=== PATIENT | male | born 1945 | race Caucasian/White ===

== ENCOUNTER 2016-08-07 14:03 | Inpatient (IN) | payer OTHER ==
[~2016-08-07] VITALS: Ht 180.3 cm; Wt 95.2 kg
[~2016-08-07 14:03] MED LIST: ADVIN10050 INH; ALBINS/ INH; BUSP-8 PO; CITA40TA12 PO; CMD75 PO; DILT240C56 PO; FLUD0.1T10 PO; FRS/40 PO; IPRA0.03 NAE; IPRA1AER2 INH; LORA-741 PO; MULT-506 PO; OXGN; POTA-74 PO; PRED1SUS3 OPR; PRED20TA PO; RANI300T2 PO; VNTHFA/IN INH
--- NOTE | 2016-08-07 15:24 | EMERGENCY ROOM VISIT NOTE ---
History Report prepared by Jamshid: Sheldon Stout Under the Supervision of: Dr. Agnieszka Bermudez D.O. First contact with patient: 14:46 Chief Complaint: RESPIRATORY PROBLEMS Stated Complaint: SOB,NO ENERGY Nursing Triage Summary: pt to the ED with c/o SOB and cough pt has dry skin LE with ulceration to left inner ankle and the right is weeping History of Present Illness The patient is a 71 year old male who presents to the Emergency Room with complaints of persistent weakness that began prior to arrival. Per the patient' s friend, the patient is currently in the process of getting and moving. He notes that on Sunday the patient was moving things in his house and sorting things, and notes that the patient became increasingly short of breath. The patient's friend notes that the patient has a history of COPD and was instructed to come to the emergency department for further evaluation by his PCP. He notes that the patient appears pale and increasingly weak today. He also described that the patient was slightly confused. The patient's friend notes that the patient has ulcerations to his bilateral feet. The patient denies any abdominal pain or chest pain. The patient states that he has had vein stripping in his legs. He notes a history of atrial fibrillation and states that he takes Coumadin. The patient reports normal fluid intake, but states that he has been eating less. The patient denies any history of diabetes , and states that he is a previous smoker. Source of History: patient, friend Onset: prior to arrival Position: other (global) Quality: other (weakness) Timing: other (persistent) Associated Symptoms: + SOB, No abdominal pain, No chest pain Note: Associated Symtpoms: eating less, bilateral ulcerations to feet, appears pale Review of Systems See HPI for pertinent positives & negatives. A total of 10 systems reviewed and were otherwise negative. Past Medical & Surgical Medical Problems: (1) Afib (2) BPH (benign prostatic hyperplasia) (3) Cellulitis (4) CHF (congestive heart failure) (5) CKD (chronic kidney disease), stage III (6) COPD (chronic obstructive pulmonary disease) (7) Depression (8) GERD (gastroesophageal reflux disease) (9) Leukocytosis (10) Orthostatic hypotension (11) Renal cancer (12) SOB (shortness of breath) Surgical Problems: (1) H/O vein stripping (2) History of nephrectomy (3) Hx of cholecystectomy (4) S/P total hip arthroplasty Family History No pertinent family history stated. Social History Smoking Status: Former Smoker Marital Status: in relationship Occupation Status: retired Current/Historical Medications Scheduled Buspirone Hcl (Buspirone Hcl), 10 MG PO BID Citalopram Hydrobromide (Celexa), 1.5 TABS PO DAILY Diltiazem Hcl Coated Beads (Diltiazem Cd), 1 TAB PO QAM Fludrocortisone Acetate (Florinef), 0.1 MG PO QAM Fluticasone Furoate-Vilanterol (Breo Ellipta), 1 PUFF PO DAILY Furosemide (Lasix), 20 MG PO QAM Multivitamin (Multivitamin), 1 TAB PO DAILY Oxygen (Oxygen), 2 LITERS NA HS Potassium Chloride (Potassium Chloride Er), 1 TAB PO QPM Ranitidine (Zantac), 300 MG PO HS Warfarin Sod (Coumadin), 7.5 MG PO QPM Scheduled PRN Albuterol Hfa (Ventolin Hfa), 2 PUFFS INH Q6H PRN for SOB/Wheezing Albuterol Sulf (Proventil 0.083% 2.5MG/3ML), 2.5 MG INH QID PRN for SOB/Wheezing Ipratropium [place] (Nasal) (Ipratropium [place]), 2 SPRAY MAKENNA QID PRN for ALLERGIES Ipratropium-Albuterol (Combivent Respimat), 1 PUFFS INH QID PRN for SOB/Wheezing Prednisone (Prednisone), 20 MG PO UD PRN for COLD SYMPTOMS Allergies Coded Allergies: No Known Allergies (Unverified , 08/07/16) Physical Exam Vital Signs Date Time Temp Pulse Resp B/P Pulse Ox O2 Delivery O2 Flow Rate FiO2 08/07/16 19:03 84 08/07/16 18:59 87 22 119/79 91 Room Air 08/07/16 18:11 82 20 105/72 92 Room Air 08/07/16 16:13 80 20 105/73 93 Room Air 08/07/16 14:36 86 08/07/16 14:24 92 08/07/16 14:23 36.7 88 20 98/60 92 Room Air Physical Exam HEENT: Head - normocephalic and atraumatic Pupils are equal, round, and reactive to light. Extraocular eye muscles are intact, and sclera are anicteric. Nose - moist nasal mucosa without discharge. Mouth - moist buccal mucosa. Oropharynx is nonerythematous and there is no tonsillar exudate or edema noted. Neck: Supple; no JVD, nuchal rigidity, cervical lymphadenopathy. Heart: Irregularly irregular heart rate. There is a normal S1 and S2 with no murmurs, clicks, or gallops appreciated. Lungs: Diminished breath sounds in all lung [place], expiratory wheezes at bases. With no rales, or rhonchi. Abdomen: Protuberant. Soft, completely nontender, nondistended, with good bowel sounds. There are no palpable pulsatile masses or hepatosplenomegaly. There is no guarding, rigidity, or rebound noted. Extremities: Ulcerations to medial aspect of both ankles, left ulcer appears much deeper than right ulcer. No evidence of cyanosis, clubbing, or edema. There are easily palpable peripheral pulses. Skin: Extremely dry and scaly legs, warm to touch, no palpable pedal pulses. Medical Decision & Procedures ER Provider Diagnostic Interpretation: X-ray results as stated below per interpretation by me and the radiologist: CHEST 2 VIEWS ROUTINE CLINICAL HISTORY: Shortness of breath COMPARISON STUDY: No previous studies for comparison. FINDINGS: The heart is enlarged. There is elevation left hemidiaphragm. There is a suspected hiatal hernia. There is no failure. There is no lobar consolidation. There are no pleural effusions.[ IMPRESSION: Suspected large hiatal hernia. No acute findings. Electronically signed by: Marc Reynolds M.D. 08/07/2016 3:57 PM Dictated Date/Time: 08/07/2016 3:57 PM LEFT ANKLE MIN 3 VIEWS ROUTINE CLINICAL HISTORY: Left ankle ulcer. Evaluate for ostium myelitis. COMPARISON: None FINDINGS: Alignment of left ankle is anatomic. There is no fracture or radiopaque foreign body. There is no radiographic evidence of osteomyelitis. There is soft tissue swelling of the medial left ankle. IMPRESSION: No acute fracture or radiographic evidence of osteomyelitis. Electronically signed by: Giuliano Laws M.D. 08/07/2016 3:58 PM Dictated Date/Time: 08/07/2016 3:56 PM Laboratory Results Test 08/07/16 15:24 08/07/16 18:22 08/07/16 18:37 08/07/16 18:56 D-Dimer 320 ug/L FEU (0-500) Magnesium Level 2.2 mg/dl (1.8-2.4) Total Bilirubin 0.5 mg/dl (0.2-1) Direct Bilirubin 0.2 mg/dl (0-0.2) Aspartate Amino Transf (AST/SGOT) 20 U/L (15-37) Alanine Aminotransferase (ALT/SGPT) 28 U/L (12-78) Alkaline Phosphatase 81 U/L (45-117) Total Creatine Kinase 148 U/L (39-308) Creatine Kinase MB 1.7 ng/ml (0.5-3.6) Creatine Kinase MB Ratio 1.1 (0-3.0) Troponin I < 0.015 ng/ml (0-0.045) Pro-B-Type Natriuretic Peptide 3744 pg/ml (0-900) Total Protein 6.8 gm/dl (6.4-8.2) Albumin 2.9 gm/dl (3.4-5.0) Thyroid Stimulating Hormone (TSH) 0.534 uIu/ml (0.300-4.500) Bedside Lactic Acid Venous 1.03 mmol/L (0.90-1.70) Activated Partial Thromboplast Time 47.8 SECONDS (21.0-31.0) Partial Thromboplastin Ratio 1.8 Urine Color DK YELLOW Urine Appearance CLEAR (CLEAR) Urine pH 5.5 (4.5-7.5) Urine Specific [place] 1.019 (1.000-1.030) Urine Protein NEG (NEG) Urine Glucose (UA) NEG (NEG) Urine Ketones TRACE (NEG) Urine Occult Blood NEG (NEG) Urine Nitrite NEG (NEG) Urine Bilirubin NEG (NEG) Urine Urobilinogen NEG (NEG) Urine Leukocyte Esterase NEG (NEG) Laboratory results per my review. Medications Administered Medications (Trade) Dose Ordered Sig/Moises Route Start Time Stop Time Status Last Admin Dose Admin Sodium Chloride 1,000 ml @ 250 mls/hr Q4H STAT IV 08/07/16 18:38 08/07/16 21:18 DC 08/07/16 18:58 250 MLS/HR Sodium Chloride 500 ml @ 999 mls/hr Q31M STAT IV 08/07/16 18:38 08/07/16 19:08 DC 08/07/16 18:38 999 MLS/HR Daptomycin 600 mg/ Sodium Chloride 62 ml @ 100 mls/hr NOW STAT IV 08/07/16 18:49 08/07/16 19:26 DC 08/07/16 20:24 100 MLS/HR Imipenem/ Cilastatin Sodium/ Dextrose (Primaxin Iv/D5 100ml) 110 ml @ 100 mls/hr NOW STAT IV 08/07/16 18:49 08/07/16 19:54 DC 08/07/16 19:18 100 MLS/HR Procedure The patient was treated with Sodium Chloride 500 ml @ 999 mls/hr IV, Sodium Chloride 1000 ml @ 250 mls/hr IV, Imipenem/Cilastatin Sodium 500 mg/Dextrose 110 ml @ 100 mls/hr IV, Daptomycin 600 mg/Sodium Chloride 62 ml @ 100 mls/hr IV. ECG Indication: SOB/dyspnea Rate (beats per minute): 83 Rhythm: atrial fibrillation Findings: RBBB, no acute ischemic change, no ectopy Comparison ECG Date: no prior available ED Course 1502: Past medical records reviewed. The patient was evaluated in room C2B. A complete history and physical exam was performed. A twelve-lead EKG was obtained. A chest x-ray was obtained. 1746: Because of the significant leukocytosis, I reevaluated the patient and going to have additional labs. The patient appears to be dehydrated on physical exam. 1838: Sodium Chloride 500 ml @ 999 mls/hr IV, Sodium Chloride 1000 ml @ 250 mls/ hr IV. 1844: I reevaluated the patient and he is resting comfortably. I discussed the exam findings with him and his friends. His friends state that the patient has been increasingly confused. I discussed the treatment plan. They all verbalized complete understanding and agreement. The patient will be evaluated for further treatment. 1849: Imipenem/Cilastatin Sodium 500 mg/Dextrose 110 ml @ 100 mls/hr IV, Daptomycin 600 mg/Sodium Chloride 62 ml @ 100 mls/hr IV. 1903: I discussed the patients case with Frieda Berumen PA-C. She is going to evaluate the patient for further treatment. Medical Decision The patient is a 71 year old male who presents to the ED with shortness of breath. Differential diagnosis includes non-healing ulcers on feet, COPD exacerbation, PE, diabetes, pneumonia, bronchitis, bacteremia, CHF, osteomyelitis. Lab interpretation: hemoglobin 20.2, hematocrit 37.9, hemoglobin 12.9, lactic acid 1.0, glucose 128, BUN 27, creatinine 1.5, albumin 2.9, normal TSH and LFTs , BNP of 3744, d-dimer 320, INR 1.6, urine dip is negative for infection this is a 71-year-old male patient who has had increasing shortness of breath and weakness over the past couple of days. The friends who accompany him also describes some increased confusion thought to be secondary to his generalized weakness. The friends had never seen the ulcerations on the patient's ankles and says they were quite concerned about what they saw. Chest x-ray was unremarkable. X-rays of the ankles revealed no evidence of osteomyelitis. The patient has normal vital signs. The patient had a subtherapeutic INR and I was somewhat concerned about PE. However, D-dimer was only 320 and therefore I do not suspect PE. The patient's presentation could represent COPD exacerbation. However, the patient has significant leukocytosis and a bit of an altered mental status. I am concerned about the wounds on his ankles. They could possibly be a source of bacteremia. We will start the patient on Primaxin and daptomycin and I have discussed the case with the [facility] Hospitalist. The patient has a bit of an elevated creatinine. We do not have a baseline creatinine to compare to. Consults Time Called: 1843 Consulting Physician: Frieda Berumen PA-C Returned Call: [phone] I discussed the patients case with Frieda Berumen PA-C. She is going to evaluate the patient for further treatment. Impression Primary Impression: Non-healing ulcer of ankle Additional Impressions: Altered mental status Renal insufficiency Scribe Attestation The scribe's documentation has been prepared under my direction and personally reviewed by me in its entirety. I confirm that the note above accurately reflects all work, treatment, procedures, and medical decision making performed by me. Departure Information Dispostion Being Evaluated By Hospitalist Referrals Jamarcus Shrestha M.D. (PCP) Problem Qualifiers
[2016-08-07 15:33] LABS: BASO ABS # 0.01 K/uL (0-0.2); COMPLETE YES; EOS % 0.3 %; HEMATOCRIT 37.9 % (42-52); IG% 0.4 %; LYMPH % 5.8 %; LYMPH ABS # 1.17 K/uL (1.2-3.4); MEAN CELL VOLUME 86.3 fL (80-100); MEAN CORPUSCULAR HEMOGLOBIN 29.4 pg (25-34); MEAN PLATELET VOLUME 8.9 fL (7.4-10.4); MONO % 6.1 %; NEUT % 87.4 %; PLATELET COUNT 149 K/uL (130-400); RED BLOOD COUNT 4.39 M/uL (4.7-6.1); WHITE BLOOD COUNT 20.27 K/uL (4.8-10.8)
[2016-08-07 15:49] LABS: INR 1.6 (0.9-1.1); PARTIAL THROMBOPLASTIN RATIO 1.6; PROTHROMBIN TIME (PATIENT) 17.5 SECONDS (9.0-12.0)
[2016-08-07 15:51] LABS: ALT/SGPT 28 U/L (12-78); AST/SGOT 20 U/L (15-37); BLOOD UREA NITROGEN 27 mg/dl (7-18); BUN/CREATININE RATIO 17.7 (10-20); CARBON DIOXIDE 28 mmol/L (21-32); CHLORIDE 103 mmol/L (98-107); GLUCOSE 128 mg/dl (70-99); MAGNESIUM 2.2 mg/dl (1.8-2.4); POTASSIUM 4.2 mmol/L (3.5-5.1); SODIUM 137 mmol/L (136-145)
--- NOTE | 2016-08-07 15:58 | DIAGNOSTIC IMAGING REPORT ---
LEFT ANKLE MIN 3 VIEWS ROUTINE CLINICAL HISTORY: Left ankle ulcer. Evaluate for ostium myelitis. COMPARISON: None FINDINGS: Alignment of left ankle is anatomic. There is no fracture or radiopaque foreign body. There is no radiographic evidence of osteomyelitis. There is soft tissue swelling of the medial left ankle. IMPRESSION: No acute fracture or radiographic evidence of osteomyelitis. Electronically signed by: Giuliano Laws M.D. 08/07/2016 3:58 PM Dictated Date/Time: 08/07/2016 3:56 PM
--- NOTE | 2016-08-07 15:58 | DIAGNOSTIC IMAGING REPORT ---
CHEST 2 VIEWS ROUTINE CLINICAL HISTORY: Shortness of breath COMPARISON STUDY: No previous studies for comparison. FINDINGS: The heart is enlarged. There is elevation left hemidiaphragm. There is a suspected hiatal hernia. There is no failure. There is no lobar consolidation. There are no pleural effusions.[ IMPRESSION: Suspected large hiatal hernia. No acute findings. Electronically signed by: Marc Reynolds M.D. 08/07/2016 3:57 PM Dictated Date/Time: 08/07/2016 3:57 PM
[2016-08-07 16:02] LABS: ALKALINE PHOSPHATASE 81 U/L (45-117); CKMB/CK RATIO 1.1 (0-3.0); THYROID STIMULATING HORMONE 0.534 uIu/ml (0.300-4.500)
[2016-08-07] MEDS ORDERED: FLUT1INH PO (16:57)
[2016-08-07] MEDS ORDERED: SODIUM CHLORIDE 0.9% 1000ML 1,000 ML IV STA (18:38)
[2016-08-07] MEDS ORDERED: SODIUM CHLORIDE 0.9% 500ML 500 ML IV STA (18:38)
[2016-08-07] MEDS ORDERED: IMIPENEM/CILASTATIN IV 500 MG in DEXTROSE 5% 100ML 100 ML IV STA (18:49)
[2016-08-07] MEDS ORDERED: DAPTOmycin IV 600 MG in SODIUM CHLORIDE 0.9% 50ML 50 ML IV STA (18:49)
[2016-08-07 19:13] LABS: URINE APPEARANCE CLEAR (CLEAR); URINE BILIRUBIN NEG (NEG); URINE COLOR DK YELLOW; URINE NITRITE NEG (NEG); URINE PH 5.5 (4.5-7.5); URINE SPECIFIC GRAVITY 1.019 (1.000-1.030); UROBILINOGEN NEG (NEG)
[2016-08-07 19:14] LABS: MANUAL MICROSCOPIC REQUIRED? NO; REVIEW REQ? NO
[2016-08-07 19:15] LABS: INR 1.6 (0.9-1.1); PARTIAL THROMBOPLASTIN RATIO 1.8; PROTHROMBIN TIME (PATIENT) 17.7 SECONDS (9.0-12.0)
[2016-08-07] MEDS ORDERED: ONDANSETRON INJ 2 MG/ML 2 ML VIAL IV PRN (19:45)
[2016-08-07] MEDS ORDERED: ACETAMINOPHEN 325 MG TAB PO PRN (19:45)
--- NOTE | 2016-08-07 20:20 | History and Physical ---
History & Physical Date & Time of Service: August 07, 2016 at 19:51 Chief Complaint: Sob,No Energy Primary Care Physician: Jamarcus Shrestha M.D. History of Present Illness Source: patient, clinic records, hospital records Patient seen and examined. 71 year old male with PMHX of COPD with nocturnal hypoxia, Afib on coumadin, Diastolic CHF, Depression, HLD, CKD stage 3, orthostatic hypotension and h/o renal CA presents to the ED complaining of SOB x 3 days. Patient reports he started to feel SOB when he was moving furniture in his home over the weekend. Since then feels more SOB. He reports associated increased cough with white sputum production. He states he took his rescue pack of prednisone and augmentin and finished that today. He states he feels "fuzzy" and has no energy so a friend brought him to the ED for further evaluation. He denies fevers, chills, chest pain, palpitations, nausea, vomiting, diarrhea, dysuria, calf pain and edema. Patient also has BL medial malleolus ulcers. He states he has had them for many months but that they are getting worse. In the ED VS are stable, WBC count is 20K, CXR is negative, d dimer is negative, he is not hypoxic. He received IVFs, Daptomycin and imipenem for possible cellulitis. He will be admitted for further workup and treatment. Past Medical/Surgical History Medical Problems: (1) Afib Status: Chronic (2) BPH (benign prostatic hyperplasia) Status: Chronic (3) CHF (congestive heart failure) Status: Chronic (4) CKD (chronic kidney disease), stage III Status: Chronic (5) COPD (chronic obstructive pulmonary disease) Status: Chronic (6) Depression Status: Chronic (7) GERD (gastroesophageal reflux disease) Status: Chronic (8) Orthostatic hypotension Status: Chronic (9) Renal cancer Status: Chronic Surgical Problems: (1) H/O vein stripping Status: Chronic (2) History of nephrectomy Status: Chronic (3) Hx of cholecystectomy Status: Chronic (4) S/P total hip arthroplasty Status: Chronic Family History FH: heart disease Social History Smoking Status: Former Smoker (150 pack year history ) Alcohol Use: none Marital Status: in relationship Occupational Status: retired Allergies Coded Allergies: No Known Allergies (Unverified , 08/07/16) Home Medications Scheduled Buspirone Hcl (Buspirone Hcl), 10 MG PO BID Citalopram Hydrobromide (Celexa), 1.5 TABS PO DAILY Diltiazem Hcl Coated Beads (Diltiazem Cd), 1 TAB PO QAM Fludrocortisone Acetate (Florinef), 0.1 MG PO QAM Fluticasone Furoate-Vilanterol (Breo Ellipta), 1 PUFF PO DAILY Furosemide (Lasix), 20 MG PO QAM Multivitamin (Multivitamin), 1 TAB PO DAILY Oxygen (Oxygen), 2 LITERS NA HS Potassium Chloride (Potassium Chloride Er), 1 TAB PO QPM Ranitidine (Zantac), 300 MG PO HS Warfarin Sod (Coumadin), 7.5 MG PO QPM Scheduled PRN Albuterol Hfa (Ventolin Hfa), 2 PUFFS INH Q6H PRN for SOB/Wheezing Albuterol Sulf (Proventil 0.083% 2.5MG/3ML), 2.5 MG INH QID PRN for SOB/Wheezing Ipratropium [place] (Nasal) (Ipratropium [place]), 2 SPRAY MAKENNA QID PRN for ALLERGIES Ipratropium-Albuterol (Combivent Respimat), 1 PUFFS INH QID PRN for SOB/Wheezing Prednisone (Prednisone), 20 MG PO UD PRN for COLD SYMPTOMS Review of Systems Constitutional: No chills, No fever Eyes: No worsening of vision ENT: No nasal symptoms Respiratory: + cough, + shortness of breath, + sputum Cardiovascular: No chest pain, No edema, No palpitations Abdomen: No constipation, No diarrhea, No nausea, No pain, No vomiting Musculoskeletal: No calf pain, No swelling Genitourinary - Male: No dysuria Neurologic: No numbness/tingling, No vertigo Psychiatric: No depression symptoms Endocrine: No fatigue Hematologic / Lymphatic: No abnormal bleeding/bruising, No clotting problems Integumentary: No itch, No rash Allergic / Immunologic: No environmental allergies Physical Exam Vital Signs Date Time Temp Pulse Resp B/P Pulse Ox O2 Delivery O2 Flow Rate FiO2 08/07/16 19:03 84 08/07/16 18:59 87 22 119/79 91 Room Air 08/07/16 18:11 82 20 105/72 92 Room Air 08/07/16 16:13 80 20 105/73 93 Room Air 08/07/16 14:36 86 08/07/16 14:24 92 08/07/16 14:23 36.7 88 20 98/60 92 Room Air General Appearance: + pertinent finding (Pleasant WD/WN 71 year old male lying in bed in NAD ) Head: normocephalic, atraumatic Eyes: PERRL, EOMI, sclerae normal ENT: hearing grossly normal, pharynx normal Neck: supple, no JVD Respiratory/Chest: chest non-tender, lungs clear (diminished), normal breath sounds, no respiratory distress, no accessory muscle use Cardiovascular: regular rate, rhythm, no edema, no gallop, no JVD, no murmur, normal peripheral pulses Abdomen/GI: normal bowel sounds, non tender, soft Back: normal inspection, no muscle spasm Extremities/Musculoskelatal: no calf tenderness, normal capillary refill, no pedal edema, + pertinent finding (BL medial malleolar ulcers, with scant drainage, mild surrounding erythema ) Neurologic/Psych: no motor/sensory deficits, alert, oriented x 3 Skin: + pertinent finding (stasis dermatitis ) Lymphatic: no adenopathy Diagnostics Laboratory Results Results Past 24 Hours Test 08/07/16 15:24 08/07/16 18:22 08/07/16 18:37 08/07/16 18:56 Range/Units White Blood Count 20.27 4.8-10.8 K/uL Red Blood Count 4.39 4.7-6.1 M/uL Hemoglobin 12.9 14.0-18.0 g/dL Hematocrit 37.9 42-52 % Mean Corpuscular Volume 86.3 80-100 fL Mean Corpuscular Hemoglobin 29.4 25-34 pg Mean Corpuscular Hemoglobin Concent 34.0 32-36 g/dl Platelet Count 149 130-400 K/uL Mean Platelet Volume 8.9 7.4-10.4 fL Neutrophils (%) (Auto) 87.4 % Lymphocytes (%) (Auto) 5.8 % Monocytes (%) (Auto) 6.1 % Eosinophils (%) (Auto) 0.3 % Basophils (%) (Auto) 0.0 % Neutrophils # (Auto) 17.72 1.4-6.5 K/uL Lymphocytes # (Auto) 1.17 1.2-3.4 K/uL Monocytes # (Auto) 1.23 0.11-0.59 K/uL Eosinophils # (Auto) 0.06 0-0.5 K/uL Basophils # (Auto) 0.01 0-0.2 K/uL RDW Standard Deviation 43.0 36.4-46.3 fL RDW Coefficient of Variation 13.6 11.5-14.5 % Immature Granulocyte % (Auto) 0.4 % Immature Granulocyte # (Auto) 0.08 0.00-0.02 K/uL Prothrombin Time 17.5 17.7 9.0-12.0 SECONDS Prothromb Time International Ratio 1.6 1.6 0.9-1.1 Activated Partial Thromboplast Time 42.8 47.8 21.0-31.0 SECONDS Partial Thromboplastin Ratio 1.6 1.8 D-Dimer 320 0-500 ug/L FEU Sodium Level 137 136-145 mmol/L Potassium Level 4.2 3.5-5.1 mmol/L Chloride Level 103 98-107 mmol/L Carbon Dioxide Level 28 21-32 mmol/L Anion Gap 6.0 3-11 mmol/L Blood Urea Nitrogen 27 7-18 mg/dl Creatinine 1.50 0.60-1.40 mg/dl Est Creatinine Clear Calc Drug Dose 55.5 ml/min Estimated GFR () 54.3 Estimated GFR (Non- 46.8 BUN/Creatinine Ratio 17.7 10-20 Random Glucose 128 70-99 mg/dl Calcium Level 9.0 8.5-10.1 mg/dl Magnesium Level 2.2 1.8-2.4 mg/dl Total Bilirubin 0.5 0.2-1 mg/dl Direct Bilirubin 0.2 0-0.2 mg/dl Aspartate Amino Transf (AST/SGOT) 20 15-37 U/L Alanine Aminotransferase (ALT/SGPT) 28 12-78 U/L Alkaline Phosphatase 81 45-117 U/L Total Creatine Kinase 148 39-308 U/L Creatine Kinase MB 1.7 0.5-3.6 ng/ml Creatine Kinase MB Ratio 1.1 0-3.0 Troponin I < 0.015 0-0.045 ng/ml Pro-B-Type Natriuretic Peptide 3744 0-900 pg/ml Total Protein 6.8 6.4-8.2 gm/dl Albumin 2.9 3.4-5.0 gm/dl Thyroid Stimulating Hormone (TSH) 0.534 0.300-4.500 uIu/ml Bedside Lactic Acid Venous 1.03 0.90-1.70 mmol/L Urine Color DK YELLOW Urine Appearance CLEAR CLEAR Urine pH 5.5 4.5-7.5 Urine Specific [place] 1.019 1.000-1.030 Urine Protein NEG NEG Urine Glucose (UA) NEG NEG Urine Ketones TRACE NEG Urine Occult Blood NEG NEG Urine Nitrite NEG NEG Urine Bilirubin NEG NEG Urine Urobilinogen NEG NEG Urine Leukocyte Esterase NEG NEG Microbiology Results 08/07/16 Blood Culture, Received Pending 08/07/16 Blood Culture, Received Pending Diagnostic Radiology ANKLE XR Per radiologist read: IMPRESSION: No acute fracture or radiographic evidence of osteomyelitis. CXR Per radiologist read: IMPRESSION: No acute fracture or radiographic evidence of osteomyelitis. EKG Afib 83 BPM, QTc 535, RBBB, LAFB Impression Assessment and Plan 71 year old male presents to the ED complaining of SOB, fatigue. Recently took rescue pack for COPD. Also has ulcer on BLLE CELLULITIS WITH ULCERS OF BILATERAL MEDIAL MALLEOLI -Admit to tele -WBC count 20K (But was just on steroids for COPD), otherwise no signs of sepsis -reports chronic ulcer, and skin changes, no history of diabetes- check A1c -Wound cultures, blood culture pending -XR negative for osteomyelitis of left ankle -Empirically treat with Vancomycin and Zosyn -CBC, PRP in AM -wound care nurse consult SHORTNESS OF BREATH/ COPD -Possible exacerbation, just finished rescue pack -DDimer negative making PE unlikely, troponin negative no chest pain, CXR without pneumonia -Saturating well on RA -leukocytosis 20K, but recent steroid use -check sputum culture -is on Zosyn, Vanco for cellulitis which will also cover pulmonary source of infection -Continue home oxygen HS -duonebs schedule and prn -continue home inhalers AFIB -continue with Diltiazem -continue Coumadin, INR 1.5 -follow INR DIASTOLIC CHF -appears euvolemic -continue Lasix CKD STAGE 3 -crea 1.5 baseline near 1.3 -avoid nephrotoxic agents as able -follow PRP DEPRESSION -continue BuSpar, Celexa ORTHOSTATIC HYPOTENSION -continue Florinef GERD -continue Zantac H/O RENAL CA -s/p nephrectomy DVT PROPHYLAXIS: SQ heparin until INR is therapeutic CODE STATUS: FULL CODE DISPO: In my clinical judgment this beneficiary meets acute admission criteria, established by [facility], that includes being hospitalized through two midnights. Patient seen in collaboration with Dr. Guerin Attending Note: Patient is a 71 yr old male with multiple comorbidities presents with history of worsening SOB, productive cough and complains of generalized weakness since 3 days duration. He admits to miss using his inhalers as he was busy in the process of getting and moving. Also states having B/L chronic wounds on his bilateral lower extremities which have been draining. Physical Exam: Vitals signs as noted above General Appearance:Moderately built and nourished, no apparent distress Head: normocephalic, Atraumatic Eyes: normal inspection, EOMI, PERRL Neck: supple, Trachea midline Respiratory/Chest: Decreased breath sounds, b/l expiratory wheezes, No accessory muscle use Cardiovascular: Irregularly, Irregular, No murmur Abdomen/GI:Soft, Non tender, Bowel sounds present Extremities/Musculoskelatal:normal inspection, + Chronic Venous stasis changes Neurologic/Psych:AAOX3, grossly no focal neurological deficits Skin:normal color,warm, + B/L LE open wounds on medial side of foot Assessment and Plan: B/L LE cellulitis H/O Varicose veins S/P stripping Blood/Wound cultures Broad spectrum IV antibiotics Wound care X ray: No signs of osteomyelitis Acute on chronic COPD exacerbation CXR: no consolidation Bronchodilators, Oxygen support Consider glucocorticoids if necessary Subtherapeutic INR: Continue Coumadin for afib Heparin SQ till INR therapeutic I personally reviewed the record. Patient is interviewed and examined at bedside. Patient's care is coordinated with Alexia Valdez PA-C. Please refer to the documentation above for details of patient's presentation and for discussion of other issues. VTE Prophylaxis VTE Risk Assessment Done? Y/N: Yes Risk Level: Moderate
[2016-08-07 21:00] VITALS: BP 124/87; PULSE 91; TEMP 36.9; O2SAT 91; Ht 180.3 cm; Wt 95.2 kg
[2016-08-07] MEDS ORDERED: VANCOMYCIN CONSULT ACTIVE PRN (21:20)
[2016-08-07] MEDS ORDERED: PIPERACILL/TAZOBAC CONSULT ACTIVE PRN (21:30)
[2016-08-07] MEDS ORDERED: VANCOMYCIN INJ 2,450 MG in SODIUM CHLORIDE 0.9% 500ML 500 ML IV SCH (22:30)
[2016-08-07] MEDS: RANITIDINE HCL 150 MG TAB PO SCH (22:32)
[2016-08-07] MEDS: POTASSIUM CHLORIDE 10 MEQ TABCR PO SCH (22:32)
[2016-08-07] MEDS: WARFARIN SOD 7.5 MG TAB PO SCH (22:33)
[2016-08-07] MEDS: HEPARIN SOD 5000 UNIT/0.5 ML CARP SQ SCH (22:36)
[2016-08-07 23:35] VITALS: BP 102/68; PULSE 85; TEMP 37; O2SAT 94
[2016-08-08] VITALS (14 sets, daily range): BP systolic 100–127; BP diastolic 62–82; PULSE 77–103; TEMP 36.8–37.5; O2SAT 90–98
[2016-08-08] MEDS ORDERED: PIPERACILL/TAZOBAC IV 3.375 GM in DEXTROSE 5% 100ML IV ONE ×2
[2016-08-08] MEDS: PIPERACILL/TAZOBAC IV 3.375 GM in DEXTROSE 5% 100ML IV SCH ×3 (06:16→21:18)
[2016-08-08] MEDS: HEPARIN SOD 5000 UNIT/0.5 ML CARP SQ SCH ×3 (06:21→21:23)
[2016-08-08 06:50] LABS: BASO % 0.1 %; BASO ABS # 0.01 K/uL (0-0.2); COMPLETE YES; EOS % 1.8 %; HEMATOCRIT 37.8 % (42-52); IG% 0.2 %; LYMPH % 10.3 %; LYMPH ABS # 1.13 K/uL (1.2-3.4); MEAN CELL VOLUME 86.1 fL (80-100); MEAN CORPUSCULAR HEMOGLOBIN 28.2 pg (25-34); MEAN CORPUSCULAR HGB CONC 32.8 g/dl (32-36); MEAN PLATELET VOLUME 8.9 fL (7.4-10.4); MONO % 5.3 %; NEUT % 82.3 %; PLATELET COUNT 145 K/uL (130-400); RED BLOOD COUNT 4.39 M/uL (4.7-6.1); WHITE BLOOD COUNT 10.94 K/uL (4.8-10.8)
[2016-08-08 06:57] LABS: INR 1.7 (0.9-1.1); PROTHROMBIN TIME (PATIENT) 18.5 SECONDS (9.0-12.0)
[2016-08-08] MEDS: ALBUT/IPRATROP 3MG/0.5MG NEB 3 ML VIAL INH SCH ×4 (07:17→19:53)
[2016-08-08 07:50] LABS: BUN/CREATININE RATIO 18.9 (10-20); CALCIUM 8.8 mg/dl (8.5-10.1); CREATININE 1.2 mg/dl (0.60-1.40); POTASSIUM 3.4 mmol/L (3.5-5.1)
[2016-08-08] MEDS: MULTIVITAMIN TAB PO SCH (07:57)
[2016-08-08] MEDS: CITALOPRAM 40 MG TAB PO SCH (07:58)
[2016-08-08] MEDS: DILTIAZEM HCL 240 MG CAPCR PO SCH (07:58)
[2016-08-08] MEDS: FUROSEMIDE 40 MG TAB PO SCH (07:59)
[2016-08-08] MEDS: FLUDROCORTISONE ACETATE 0.1 MG TAB PO SCH (07:59)
[2016-08-08 08:36] LABS: ESTIMATED AVERAGE GLUCOSE 126 mg/dl; HA1C FLAG Normal (Normal)
[2016-08-08] MEDS ORDERED: POTASSIUM CHLORIDE 10 MEQ TABCR PO ONE (09:00)
--- NOTE | 2016-08-08 09:48 | Progress Note ---
Subjective Date of Service: August 08, 2016. Subjective Pt evaluation today including: conversation w/ patient, physical exam, lab review, review of studies, review of inpatient medication list Saw/examined the patient in room 240 states he presented to the hospital due to feeling short of breath states he forgot to use his inhaler on Sunday and Sunday while working outside in the humidity and has been short of breath since then currently he feels okay, still slight shortness of breath persists; denies chest pain or palpitations, denies fevers/chills Problem List Medical Problems: (1) Altered mental status Status: Acute (2) Non-healing ulcer of ankle Status: Acute (3) Renal insufficiency Status: Acute Review of Systems Constitutional: No chills, No fever Respiratory: + shortness of breath, + wheezing, No cough, No dyspnea at rest, No dyspnea on exertion, No hemoptysis, No sputum Cardiac: No chest pain, No edema, No palpitations Abdomen: No diarrhea, No nausea, No pain, No vomiting Medications Current Inpatient Medications Medications (Trade) Dose Ordered Sig/Moises Route Start Time Stop Time Status Last Admin Dose Admin Heparin Sodium (Porcine) (Heparin Sq 5000 Unit/0.5ml) 5,000 unit Q8 SQ 08/07/16 22:00 09/06/16 21:59 08/08/16 06:21 5,000 UNIT Acetaminophen (Tylenol Tab) 650 mg Q4H PRN PO 08/07/16 19:45 09/06/16 19:44 Ondansetron HCl (Zofran Inj) 4 mg Q6H PRN IV 08/07/16 19:45 09/06/16 19:44 Vancomycin HCl (Consult) 1 ea DAILY PRN N/A 08/07/16 21:20 09/06/16 21:19 Albuterol/ Ipratropium (Duoneb) 3 ml QIDR INH 08/07/16 20:00 09/06/16 19:59 08/08/16 07:17 3 ML Citalopram Hydrobromide (celeXA TAB) 60 mg DAILY PO 08/08/16 09:00 09/07/16 08:59 08/08/16 07:58 60 MG Diltiazem HCl (Cardizem Cd Cap) 240 mg QAM PO 08/08/16 09:00 09/07/16 08:59 08/08/16 07:58 240 MG Fludrocortisone Acetate (Florinef Tab) 0.1 mg QAM PO 08/08/16 09:00 09/07/16 08:59 08/08/16 07:59 0.1 MG Furosemide (Lasix Tab) 20 mg QAM PO 08/08/16 09:00 09/07/16 08:59 08/08/16 07:59 20 MG Multivitamins (Multivitamin Tab) 1 tab DAILY PO 08/08/16 09:00 09/07/16 08:59 08/08/16 07:57 1 TAB Warfarin Sodium (Coumadin Tab) 7.5 mg QPM PO 08/07/16 21:00 09/06/16 20:59 08/07/16 22:33 7.5 MG Buspirone HCl (Buspar Tab) 10 mg BID PO 08/07/16 21:00 09/06/16 20:59 08/08/16 07:58 10 MG Miscellaneous Information (Order Awaiting Action) 1 ea QS N/A 08/08/16 00:00 09/07/16 00:00 08/08/16 08:00 1 EA Miscellaneous Information (Order Awaiting Action) 1 ea QS N/A 08/08/16 00:00 09/07/16 00:00 08/08/16 07:59 1 EA Potassium Chloride (Klor-Con M10) 10 meq QPM PO 08/07/16 21:00 09/06/16 20:59 08/07/16 22:32 10 MEQ Ranitidine HCl (zANTac TAB) 300 mg HS PO 08/07/16 21:00 09/06/16 20:59 08/07/16 22:32 300 MG Piperacillin Sod/ Tazobactam Sod 1 ea 1 ea UD PRN N/A 08/07/16 21:30 09/06/16 21:29 Piperacillin Sod/ Tazobactam Sod 3.375 gm/Dextrose 115 ml @ 28.75 mls/ hr Q8H IV 08/08/16 06:00 08/18/16 05:59 08/08/16 06:16 28.75 MLS/HR Vancomycin HCl/ Sodium Chloride (Vancomycin Inj/ Nss 250ml) 272 ml @ 125 mls/hr Q12@10,22 IV 08/08/16 10:00 08/17/16 21:59 Objective Vital Signs Date Time Temp Pulse Resp B/P Pulse Ox O2 Delivery O2 Flow Rate FiO2 08/08/16 07:27 37.0 95 16 100/62 90 Room Air 08/08/16 07:17 77 14 98 Nasal Cannula 2.0 08/08/16 04:00 94 Nasal Cannula 2.0 08/08/16 03:48 36.9 86 18 107/71 94 Nasal Cannula 2.0 08/08/16 00:01 94 Nasal Cannula 2.0 08/07/16 23:35 37.0 85 22 102/68 94 Nasal Cannula 2.0 08/07/16 21:00 36.9 91 20 124/87 91 Room Air 08/07/16 20:26 82 20 130/80 91 Room Air 08/07/16 19:03 84 08/07/16 18:59 87 22 119/79 91 Room Air 08/07/16 18:11 82 20 105/72 92 Room Air 08/07/16 16:13 80 20 105/73 93 Room Air 08/07/16 14:36 86 08/07/16 14:24 92 08/07/16 14:23 36.7 88 20 98/60 92 Room Air Physical Exam General Appearance: no apparent distress ENT: hearing grossly normal Respiratory/Chest: no respiratory distress, no accessory muscle use, + decreased breath sounds Cardiovascular: no edema, no murmur, + irregularly irregular Neurologic/Psychiatric: no motor/sensory deficits, alert, normal mood/affect Skin: + pertinent finding (venous stasis dermatitis with overlying erythema and warmth to touch; with ulcerations noted bilateral LE) Laboratory Results Last 24 Hours Test 08/07/16 15:24 08/07/16 18:22 08/07/16 18:37 08/07/16 18:56 White Blood Count 20.27 K/uL Red Blood Count 4.39 M/uL Hemoglobin 12.9 g/dL Hematocrit 37.9 % Mean Corpuscular Volume 86.3 fL Mean Corpuscular Hemoglobin 29.4 pg Mean Corpuscular Hemoglobin Concent 34.0 g/dl Platelet Count 149 K/uL Mean Platelet Volume 8.9 fL Neutrophils (%) (Auto) 87.4 % Lymphocytes (%) (Auto) 5.8 % Monocytes (%) (Auto) 6.1 % Eosinophils (%) (Auto) 0.3 % Basophils (%) (Auto) 0.0 % Neutrophils # (Auto) 17.72 K/uL Lymphocytes # (Auto) 1.17 K/uL Monocytes # (Auto) 1.23 K/uL Eosinophils # (Auto) 0.06 K/uL Basophils # (Auto) 0.01 K/uL RDW Standard Deviation 43.0 fL RDW Coefficient of Variation 13.6 % Immature Granulocyte % (Auto) 0.4 % Immature Granulocyte # (Auto) 0.08 K/uL Prothrombin Time 17.5 SECONDS 17.7 SECONDS Prothromb Time International Ratio 1.6 1.6 Activated Partial Thromboplast Time 42.8 SECONDS 47.8 SECONDS Partial Thromboplastin Ratio 1.6 1.8 D-Dimer 320 ug/L FEU Sodium Level 137 mmol/L Potassium Level 4.2 mmol/L Chloride Level 103 mmol/L Carbon Dioxide Level 28 mmol/L Anion Gap 6.0 mmol/L Blood Urea Nitrogen 27 mg/dl Creatinine 1.50 mg/dl Est Creatinine Clear Calc Drug Dose 55.5 ml/min Estimated GFR () 54.3 Estimated GFR (Non- 46.8 BUN/Creatinine Ratio 17.7 Random Glucose 128 mg/dl Calcium Level 9.0 mg/dl Magnesium Level 2.2 mg/dl Total Bilirubin 0.5 mg/dl Direct Bilirubin 0.2 mg/dl Aspartate Amino Transf (AST/SGOT) 20 U/L Alanine Aminotransferase (ALT/SGPT) 28 U/L Alkaline Phosphatase 81 U/L Total Creatine Kinase 148 U/L Creatine Kinase MB 1.7 ng/ml Creatine Kinase MB Ratio 1.1 Troponin I < 0.015 ng/ml Pro-B-Type Natriuretic Peptide 3744 pg/ml Total Protein 6.8 gm/dl Albumin 2.9 gm/dl Thyroid Stimulating Hormone (TSH) 0.534 uIu/ml Bedside Lactic Acid Venous 1.03 mmol/L Urine Color DK YELLOW Urine Appearance CLEAR Urine pH 5.5 Urine Specific [place] 1.019 Urine Protein NEG Urine Glucose (UA) NEG Urine Ketones TRACE Urine Occult Blood NEG Urine Nitrite NEG Urine Bilirubin NEG Urine Urobilinogen NEG Urine Leukocyte Esterase NEG Test 08/08/16 06:25 White Blood Count 10.94 K/uL Red Blood Count 4.39 M/uL Hemoglobin 12.4 g/dL Hematocrit 37.8 % Mean Corpuscular Volume 86.1 fL Mean Corpuscular Hemoglobin 28.2 pg Mean Corpuscular Hemoglobin Concent 32.8 g/dl Platelet Count 145 K/uL Mean Platelet Volume 8.9 fL Neutrophils (%) (Auto) 82.3 % Lymphocytes (%) (Auto) 10.3 % Monocytes (%) (Auto) 5.3 % Eosinophils (%) (Auto) 1.8 % Basophils (%) (Auto) 0.1 % Neutrophils # (Auto) 9.00 K/uL Lymphocytes # (Auto) 1.13 K/uL Monocytes # (Auto) 0.58 K/uL Eosinophils # (Auto) 0.20 K/uL Basophils # (Auto) 0.01 K/uL RDW Standard Deviation 42.7 fL RDW Coefficient of Variation 13.4 % Immature Granulocyte % (Auto) 0.2 % Immature Granulocyte # (Auto) 0.02 K/uL Prothrombin Time 18.5 SECONDS Prothromb Time International Ratio 1.7 Sodium Level 141 mmol/L Potassium Level 3.4 mmol/L Chloride Level 108 mmol/L Carbon Dioxide Level 25 mmol/L Anion Gap 8.0 mmol/L Blood Urea Nitrogen 23 mg/dl Creatinine 1.20 mg/dl Est Creatinine Clear Calc Drug Dose 68.9 ml/min Estimated GFR () 71.1 Estimated GFR (Non- 61.3 BUN/Creatinine Ratio 18.9 Random Glucose 106 mg/dl Calcium Level 8.8 mg/dl Assessment and Plan This is a 71 year old male with a PMH of atrial fibrillation on Coumadin, COPD and nocturnal hypoxia and nocturnal O2 use, diastolic CHF, HLD, hx. of renal cell CA and CKD stage 3, depression, HLD presents with worsening shortness of breath Acute COPD exacerbation - improving Likely an exacerbation of his COPD brought him to the ER He uses Combivent but forgot to use it on Sunday/Sunday States he uses it four times daily Also uses Breo-Ellipta He finished his prednisone rescue kit at home Feeling better this morning uses Nocturnal O2, which we will continue nebs PRN would benefit from the addition of Spiriva on discharge Lower Extremity Cellulitis Venous Stasis Ulceration patient presented with ulcers on bilateral LE erythematous and warm to touch; states he dresses these himself 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 prednisone use as outpatient) started on Zosyn + Vanco which we can continue for a few days prior to de- escalating wound care consulted Atrial Fibrillation currently in A. Fib but rate is controlled continue Diltiazem INR subtherapeutic; continue Coumadin, check INR in AM Diastolic CHF continue home dose of Lasix CKD stage 3 Hx. of Renal CA s/p nephrectomy creatinine this AM of 1.2 this is right around his baseline avoid nephrotoxic agents if possible Depression stable with meds, continue home regimen Orthostatic Hypotension continue Florinef DVT ppx subq heparin FULL CODE Discharge planning: home
[2016-08-08] MEDS: VANCOMYCIN INJ 1,100 MG in SODIUM CHLORIDE 0.9% 250ML 250 ML IV SCH ×2 (10:25→21:18)
--- NOTE | 2016-08-08 10:43 | Pharmacy Progress Note ---
Pharmacy Antibiotic Consult Date of Service: August 08, 2016. Pharmacy Dosing Scope Pharmacy is consulted to initiate Vancomycin and Zosyn IV dosing therapies for cellulitis, order appropriate labs and adjust drug dose/frequency. Subjective The patient is a 71 year old male admitted on August 07, 2016 at 19:46. Objective Height (Feet): 5 Height (Inches): 11.00 Weight (Kilograms): 96.700 Lab Results (24hrs): Laboratory Tests Test 08/07/16 15:24 08/08/16 06:25 BUN/Creatinine Ratio 17.7 18.9 Blood Urea Nitrogen 27 mg/dl 23 mg/dl Creatinine 1.50 mg/dl 1.20 mg/dl White Blood Count 20.27 K/uL 10.94 K/uL Red Blood Count 4.39 M/uL 4.39 M/uL Hemoglobin 12.9 g/dL 12.4 g/dL Hematocrit 37.9 % 37.8 % Mean Corpuscular Volume 86.3 fL 86.1 fL Mean Corpuscular Hemoglobin 29.4 pg 28.2 pg Mean Corpuscular Hemoglobin Concent 34.0 g/dl 32.8 g/dl Platelet Count 149 K/uL 145 K/uL Mean Platelet Volume 8.9 fL 8.9 fL Neutrophils (%) (Auto) 87.4 % 82.3 % Lymphocytes (%) (Auto) 5.8 % 10.3 % Monocytes (%) (Auto) 6.1 % 5.3 % Eosinophils (%) (Auto) 0.3 % 1.8 % Basophils (%) (Auto) 0.0 % 0.1 % Neutrophils # (Auto) 17.72 K/uL 9.00 K/uL Lymphocytes # (Auto) 1.17 K/uL 1.13 K/uL Monocytes # (Auto) 1.23 K/uL 0.58 K/uL Eosinophils # (Auto) 0.06 K/uL 0.20 K/uL Basophils # (Auto) 0.01 K/uL 0.01 K/uL Micro Results: Item Value Date Time MRSA DNA Surveillance Screen Received 08/08/16 0920 Nasal Pending Gram Stain - Final Resulted 08/07/16 2225 Ulcer Ankle Right Pending Gram Stain - Final Resulted 08/07/16 2225 Ulcer Ankle Left Pending Gram Stain - Final Resulted 08/07/16 2225 Sputum Expectorated Sputum Pending Blood Culture Received 08/07/161814 Blood Pending Blood Culture Received 08/07/161809 Blood Pending Recent Pertinent Medications Item Value Date Time Daptomycin 600 mg/ 62 ml @ 100 mls/hr 08/07/161848 Sodium Chloride NOW STAT/IV 08/07/162023 Imipenem/ 110 ml @ 100 mls/hr 08/07/161848 Cilastatin Sodium NOW STAT/IV 08/07/16 1918 500 mg/Dextrose Assessment & Plan Pharmacy has been consulted to dose and monitor Vancomycin and Zosyn IV therapies for cellulitis. VANCOMYCIN Loading dose: Vancomycin 2450 mg (~25mg/kg) IV X 1 dose then: Vancomycin 1100 mg (~11mg/kg) IV every 12 hours. * Estimated P'kinetic levels: ke= 0.61/hr, t1/2= 11 hrs * Goal trough level estimate: ~15 mcg/mL. * Trough level has been ordered for: ~30 minutes before the 5th dose at 2200, which will be when Vancomycin concentrations have reached steady state. ZOSYN * Zosyn 3.375gm IV x 1 dose in the ED, then: * Zosyn 3.375gm IV every 8 hours extended infusion for CrCl greater than 20mL/ min (CrCl~ 69mL/min). Pharmacy will continue to follow and will adjust dose/frequency as necessary. Thank you
[2016-08-08] MEDS ORDERED: NURSING DECISION MEDICATION ORDER SCH (14:00)
[2016-08-08] MEDS ORDERED: EUCERIN CR 120 GM JAR EXT PRN (14:15)
[2016-08-08] MEDS: WARFARIN SOD 7.5 MG TAB PO SCH (20:03)
[2016-08-08] MEDS: RANITIDINE HCL 150 MG TAB PO SCH (20:03)
[2016-08-08] MEDS: POTASSIUM CHLORIDE 10 MEQ TABCR PO SCH (20:04)
[2016-08-09] VITALS (13 sets, daily range): BP systolic 108–135; BP diastolic 65–77; PULSE 66–108; TEMP 36.4–37.3; O2SAT 91–96
[2016-08-09] MEDS: PIPERACILL/TAZOBAC IV 3.375 GM in DEXTROSE 5% 100ML IV SCH ×3 (05:56→21:04)
[2016-08-09] MEDS: HEPARIN SOD 5000 UNIT/0.5 ML CARP SQ SCH ×3 (05:57→21:03)
[2016-08-09 06:59] LABS: HEMATOCRIT 37.2 % (42-52); MEAN CELL VOLUME 86.3 fL (80-100); MEAN CORPUSCULAR HGB CONC 33.6 g/dl (32-36); MEAN PLATELET VOLUME 8.7 fL (7.4-10.4); PLATELET COUNT 139 K/uL (130-400); RED BLOOD COUNT 4.31 M/uL (4.7-6.1); WHITE BLOOD COUNT 7.72 K/uL (4.8-10.8)
[2016-08-09] MEDS: ALBUT/IPRATROP 3MG/0.5MG NEB 3 ML VIAL INH SCH ×2 (07:22→11:20)
[2016-08-09 07:39] LABS: CALCIUM 8.7 mg/dl (8.5-10.1); CREATININE 1.2 mg/dl (0.60-1.40); POTASSIUM 3.4 mmol/L (3.5-5.1)
[2016-08-09] MEDS: FUROSEMIDE 40 MG TAB PO SCH (08:21)
[2016-08-09] MEDS: FLUDROCORTISONE ACETATE 0.1 MG TAB PO SCH (08:22)
[2016-08-09] MEDS: CITALOPRAM 40 MG TAB PO SCH (08:22)
[2016-08-09] MEDS: DILTIAZEM HCL 240 MG CAPCR PO SCH (08:22)
[2016-08-09] MEDS: MULTIVITAMIN TAB PO SCH (08:23)
[2016-08-09] MEDS ORDERED: POTASSIUM CHLORIDE 20 MEQ TABCR PO ONE (08:45)
[2016-08-09] MEDS: VANCOMYCIN INJ 1,100 MG in SODIUM CHLORIDE 0.9% 250ML 250 ML IV SCH ×2 (11:30→22:18)
[2016-08-09] MEDS ORDERED: ALBUT/IPRATROP 3MG/0.5MG NEB 3 ML VIAL INH PRN (12:00)
[2016-08-09] MEDS: WARFARIN SOD 7.5 MG TAB PO SCH (20:59)
[2016-08-09] MEDS: RANITIDINE HCL 150 MG TAB PO SCH (21:00)
[2016-08-09] MEDS: POTASSIUM CHLORIDE 10 MEQ TABCR PO SCH (21:00)
[2016-08-09] MEDS ORDERED: VANCOMYCIN TROUGH SCH (21:30)
--- NOTE | 2016-08-09 21:55 | Progress Note ---
Medicine Progress Note Date & Time of Visit: August 09, 2016 at 11:57. Subjective This is a 71 year old male with a PMH of atrial fibrillation on Coumadin, COPD and nocturnal hypoxia and nocturnal O2 use, diastolic CHF who presents with SOB and sore throat for several days states that energy level has improved he is tolerating PO his cough has improved his breathing has improved he denies chest pain, leg pain or other symptoms at this time. Objective Last 8 Hrs Date Time Temp Pulse Resp B/P Pulse Ox O2 Delivery O2 Flow Rate FiO2 08/09/16 11:20 85 16 91 Room Air 08/09/16 08:12 36.7 94 22 108/69 95 Room Air 08/09/16 08:00 95 Room Air 08/09/16 07:22 85 14 95 Nasal Cannula 2.0 08/09/16 04:12 37.1 94 21 121/71 93 Nasal Cannula 2.0 08/09/16 04:00 Room Air Physical Exam: GEN: WNWD, has significant work of breathing and shortness of breath with min exertion such as taking off his socks, breathes very heavy for a few minutes afterwards with conversational dsypnea, alert and appropriate HEENT: NC/AT, normal sclerae CARDIO: reg rate, S1/2 heard without m/g/r LUNGS: CTA bilaterally, no crackles, rales or wheezes, good diaphragmatic excursion ABD: soft, obese/protuberant, non-tender, non-distended, no rebound or guarding , +BS EXTREMITY: ankles were just wrapped up with dressing c/d/i (as a result, dressing was not removed) no LE swelling or edema, extremities are warm and well -perfused NEURO: CN 2-12 grossly intact MUSC: moves all extremities equally, no gross focal deficits SKIN: warm and dry and wounds as above. Laboratory Results: 08/09/16 06:32 08/09/16 06:32 Test 08/07/16 15:24 08/07/16 18:22 08/07/16 18:37 08/07/16 18:56 D-Dimer 320 ug/L FEU (0-500) Magnesium Level 2.2 mg/dl (1.8-2.4) Total Bilirubin 0.5 mg/dl (0.2-1) Direct Bilirubin 0.2 mg/dl (0-0.2) Aspartate Amino Transf (AST/SGOT) 20 U/L (15-37) Alanine Aminotransferase (ALT/SGPT) 28 U/L (12-78) Alkaline Phosphatase 81 U/L (45-117) Total Creatine Kinase 148 U/L (39-308) Creatine Kinase MB 1.7 ng/ml (0.5-3.6) Creatine Kinase MB Ratio 1.1 (0-3.0) Troponin I < 0.015 ng/ml (0-0.045) Pro-B-Type Natriuretic Peptide 3744 pg/ml (0-900) Total Protein 6.8 gm/dl (6.4-8.2) Albumin 2.9 gm/dl (3.4-5.0) Thyroid Stimulating Hormone (TSH) 0.534 uIu/ml (0.300-4.500) Bedside Lactic Acid Venous 1.03 mmol/L (0.90-1.70) Activated Partial Thromboplast Time 47.8 SECONDS (21.0-31.0) Partial Thromboplastin Ratio 1.8 Urine Color DK YELLOW Urine Appearance CLEAR (CLEAR) Urine pH 5.5 (4.5-7.5) Urine Specific [place] 1.019 (1.000-1.030) Urine Protein NEG (NEG) Urine Glucose (UA) NEG (NEG) Urine Ketones TRACE (NEG) Urine Occult Blood NEG (NEG) Urine Nitrite NEG (NEG) Urine Bilirubin NEG (NEG) Urine Urobilinogen NEG (NEG) Urine Leukocyte Esterase NEG (NEG) Test 08/08/16 06:25 08/09/16 06:32 08/09/16 21:28 Immature Granulocyte % (Auto) 0.2 % White Blood Count 10.94 K/uL (4.8-10.8) Red Blood Count 4.39 M/uL (4.7-6.1) 4.31 M/uL (4.7-6.1) Hemoglobin 12.4 g/dL (14.0-18.0) Hematocrit 37.8 % (42-52) Mean Corpuscular Volume 86.1 fL (80-100) 86.3 fL (80-100) Mean Corpuscular Hemoglobin 28.2 pg (25-34) 29.0 pg (25-34) Mean Corpuscular Hemoglobin Concent 32.8 g/dl (32-36) 33.6 g/dl (32-36) Platelet Count 145 K/uL (130-400) Mean Platelet Volume 8.9 fL (7.4-10.4) 8.7 fL (7.4-10.4) Neutrophils (%) (Auto) 82.3 % Lymphocytes (%) (Auto) 10.3 % Monocytes (%) (Auto) 5.3 % Eosinophils (%) (Auto) 1.8 % Basophils (%) (Auto) 0.1 % Neutrophils # (Auto) 9.00 K/uL (1.4-6.5) Lymphocytes # (Auto) 1.13 K/uL (1.2-3.4) Monocytes # (Auto) 0.58 K/uL (0.11-0.59) Eosinophils # (Auto) 0.20 K/uL (0-0.5) Basophils # (Auto) 0.01 K/uL (0-0.2) Immature Granulocyte # (Auto) 0.02 K/uL (0.00-0.02) Prothrombin Time 18.5 SECONDS (9.0-12.0) Prothromb Time International Ratio 1.7 (0.9-1.1) Estimated Average Glucose 126 mg/dl Hemoglobin A1c 6.0 % (4.5-5.6) RDW Standard Deviation 42.5 fL (36.4-46.3) RDW Coefficient of Variation 13.3 % (11.5-14.5) Anion Gap 8.0 mmol/L (3-11) Est Creatinine Clear Calc Drug Dose 68.4 ml/min Estimated GFR () 71.1 Estimated GFR (Non- 61.3 BUN/Creatinine Ratio 12.0 (10-20) Calcium Level 8.7 mg/dl (8.5-10.1) Date/Time Source Procedure Growth Status 08/07/16 18:15 Blood Blood Culture - Preliminary NO GROWTH TO DATE. Resulted 08/09/16 13:11 Pharyngeal Swab Throat Culture Pending Received 08/07/16 22:25 Sputum Expectorated Sputum Gram Stain - Final Resulted 08/07/16 22:25 Sputum Culture - Preliminary Staphylococcus Aureus Resulted 08/07/16 22:25 Ulcer Ankle Right Gram Stain - Final Resulted 08/07/16 22:25 Wound Culture - Preliminary Corynebacterium Species Staphylococcus Aureus Resulted Last 24 Hours Test 08/09/16 06:32 White Blood Count 7.72 K/uL Red Blood Count 4.31 M/uL Hemoglobin 12.5 g/dL Hematocrit 37.2 % Mean Corpuscular Volume 86.3 fL Mean Corpuscular Hemoglobin 29.0 pg Mean Corpuscular Hemoglobin Concent 33.6 g/dl RDW Standard Deviation 42.5 fL RDW Coefficient of Variation 13.3 % Platelet Count 139 K/uL Mean Platelet Volume 8.7 fL Sodium Level 143 mmol/L Potassium Level 3.4 mmol/L Chloride Level 107 mmol/L Carbon Dioxide Level 28 mmol/L Anion Gap 8.0 mmol/L Blood Urea Nitrogen 14 mg/dl Creatinine 1.20 mg/dl Est Creatinine Clear Calc Drug Dose 68.4 ml/min Estimated GFR () 71.1 Estimated GFR (Non- 61.3 BUN/Creatinine Ratio 12.0 Random Glucose 99 mg/dl Calcium Level 8.7 mg/dl Assessment & Plan This is a 71 year old male with a PMH of atrial fibrillation on Coumadin, COPD and nocturnal hypoxia and nocturnal O2 use, diastolic CHF who presents with SOB and sore throat for several days Dyspnea Likely 2/2 acute exacerbation of COPD which is improved He uses Combivent but forgot to use it on Sunday/Sunday States he uses it four times daily Also uses Breo-Ellipta He finished his prednisone rescue kit at home continues to feel well but is very short of breath with minimal exertion. uses Nocturnal O2, which we will continue nebs PRN would benefit from the addition of Spiriva on discharge -despite improvement of wheezing/apparent COPD exacerbation he is very short of breath with min exertion-appreciate Pulmonology recs -also he has not had an echo in 3 years, so will take a look at his heart to see if this may be contributing Lower Extremity Cellulitis Venous Stasis Ulceration vs infection patient presented with ulcers on bilateral LE erythematous and warm to touch; states he dresses these himself Venous stasis ulcers with poss superficial infection vs contamination--prelim growing corynebacterium species and with sore throat, likely coryne is a contaminant. Throat culture ordered. presented with an elevated WBC (infection vs. prednisone use as outpatient)-- resolved to normal started on Zosyn + Vanco-continue until cultures return and clinical picture improves more. wound care consulted Atrial Fibrillation currently in A. Fib but rate is controlled continue Diltiazem INR subtherapeutic; continue Coumadin, check INR in AM will make minor adjustment if still low. Diastolic CHF: continue home dose of Lasix repeat TTE in am. CKD stage 3 Hx. of Renal CA s/p nephrectomy At baseline avoid nephrotoxic agents if possible Depression stable with meds, continue home regimen Orthostatic Hypotension continue Florinef Hypokalemia-replaced PO, recheck in am along with Mg level DVT ppx subq heparin FULL CODE DO Frieda Foreman Hospitalist Discharge planning: home Current Inpatient Medications: Current Inpatient Medications Medications (Trade) Dose Ordered Sig/Moises Route Start Time Stop Time Status Last Admin Dose Admin Heparin Sodium (Porcine) (Heparin Sq 5000 Unit/0.5ml) 5,000 unit Q8 SQ 08/07/16 22:00 09/06/16 21:59 08/09/16 05:57 5,000 UNIT Acetaminophen (Tylenol Tab) 650 mg Q4H PRN PO 08/07/16 19:45 09/06/16 19:44 Ondansetron HCl (Zofran Inj) 4 mg Q6H PRN IV 08/07/16 19:45 09/06/16 19:44 Vancomycin HCl (Consult) 1 ea DAILY PRN N/A 08/07/16 21:20 09/06/16 21:19 Citalopram Hydrobromide (celeXA TAB) 60 mg DAILY PO 08/08/16 09:00 09/07/16 08:59 08/09/16 08:22 60 MG Diltiazem HCl (Cardizem Cd Cap) 240 mg QAM PO 08/08/16 09:00 09/07/16 08:59 08/09/16 08:22 240 MG Fludrocortisone Acetate (Florinef Tab) 0.1 mg QAM PO 08/08/16 09:00 09/07/16 08:59 08/09/16 08:22 0.1 MG Furosemide (Lasix Tab) 20 mg QAM PO 08/08/16 09:00 09/07/16 08:59 08/09/16 08:21 20 MG Multivitamins (Multivitamin Tab) 1 tab DAILY PO 08/08/16 09:00 09/07/16 08:59 08/09/16 08:23 1 TAB Warfarin Sodium (Coumadin Tab) 7.5 mg QPM PO 08/07/16 21:00 09/06/16 20:59 08/08/16 20:03 7.5 MG Miscellaneous Information (Order Awaiting Action) 1 ea QS N/A 08/08/16 00:00 09/07/16 00:00 08/08/16 08:00 1 EA Miscellaneous Information (Order Awaiting Action) 1 ea QS N/A 08/08/16 00:00 09/07/16 00:00 08/08/16 07:59 1 EA Potassium Chloride (Klor-Con M10) 10 meq QPM PO 08/07/16 21:00 09/06/16 20:59 08/08/16 20:04 10 MEQ Ranitidine HCl (zANTac TAB) 300 mg HS PO 08/07/16 21:00 09/06/16 20:59 08/08/16 20:03 300 MG Piperacillin Sod/ Tazobactam Sod 1 ea 1 ea UD PRN N/A 08/07/16 21:30 09/06/16 21:29 Piperacillin Sod/ Tazobactam Sod 3.375 gm/Dextrose 115 ml @ 28.75 mls/ hr Q8H IV 08/08/16 06:00 08/18/16 05:59 08/09/16 05:56 28.75 MLS/HR Vancomycin HCl/ Sodium Chloride (Vancomycin Inj/ Nss 250ml) 272 ml @ 125 mls/hr Q12@10,22 IV 08/08/16 10:00 08/17/16 21:59 08/09/16 11:30 125 MLS/HR Multi-Ingredient Ointment (Eucerin Unscented Cr) 1 appln DAILY PRN EXT 08/08/16 14:15 09/07/16 14:14 Buspirone HCl (Buspar Tab) 10 mg BID PO 08/08/16 21:00 09/07/16 20:59 08/09/16 08:22 10 MG
--- NOTE | 2016-08-09 22:57 | Pharmacy Progress Note ---
Pharmacy Antibiotic Prog Note Date of Service August 09, 2016. Subjective The patient is currently receiving vancomycin 1100 mg IV every 12 hours. The patient is currently on day # 2 of vancomycin and Zosyn IV therapy for COPD exacerbation/ cellulitis. Objective Height (Feet): 5 Height (Inches): 11.00 Weight (Kilograms): 95.100 Levels: Item Value Date Time Vancomycin Level Trough 13.1 mcg/ml 08/09/16 2128 Lab Results (24hrs): Laboratory Tests Test 08/09/16 06:32 BUN/Creatinine Ratio 12.0 Blood Urea Nitrogen 14 mg/dl Creatinine 1.20 mg/dl White Blood Count 7.72 K/uL Micro Results: Item Value Date Time Throat Culture Received 08/09/16 1311 Pharyngeal Swab Pending MRSA DNA Surveillance Screen - Final Complete 08/08/16 0920 Nasal Specimen Negative for MRSA by DNA Probe Gram Stain - Final Resulted 08/07/16 2225 Ulcer Ankle Right Gram Stain - Final Resulted 08/07/16 2225 Ulcer Ankle Left Gram Stain - Final Resulted 08/07/16 2225 Sputum Expectorated Sputum Blood Culture - Preliminary Resulted 08/07/16 1815 Blood NO GROWTH TO DATE. Blood Culture - Preliminary Resulted 08/07/16 1810 Blood NO GROWTH TO DATE. Recent Pertinent Medications Item Value Date Time Vancomycin HCl 272 ml @ 125 mls/hr 08/08/16 1000 1100 mg/Sodium Q12@10,22/IV 08/09/16 2218 Chloride Piperacillin Sod/ 115 ml @ 28.75 mls/hr 08/08/16 0600 Tazobactam Sod Q8H/IV 08/09/16 2104 3.375 gm/Dextrose Assessment & Plan ASSESSMENT: * Current trough is therapeutic for indication but dose prior to this level was given 1.5 hrs late so true trough is most likely subtherapeutic * Will plan to increase dose but only slightly w/ history of renal cancer s/p nephrectomy PLAN: * Increase to 1300 mg (13.6 mg/kg) IV q12h * Trough level prior to the 5th dose on 08/12 at 1000 * Goal trough 10-15 for cellulitis Pharmacy will continue to follow and will adjust dose/frequency as necessary. Thank you
[2016-08-10] VITALS: O2SAT 96
[2016-08-10] MEDS: PIPERACILL/TAZOBAC IV 3.375 GM in DEXTROSE 5% 100ML IV SCH (05:05)
[2016-08-10] MEDS: HEPARIN SOD 5000 UNIT/0.5 ML CARP SQ SCH ×3 (05:07→20:55)
[2016-08-10 07:11] VITALS: BP 116/73; PULSE 87; TEMP 37.2; O2SAT 92
[2016-08-10 07:11] LABS: HEMATOCRIT 35.9 % (42-52); MEAN CELL VOLUME 86.1 fL (80-100); MEAN CORPUSCULAR HEMOGLOBIN 28.8 pg (25-34); MEAN CORPUSCULAR HGB CONC 33.4 g/dl (32-36); MEAN PLATELET VOLUME 8.5 fL (7.4-10.4); PLATELET COUNT 145 K/uL (130-400); RED BLOOD COUNT 4.17 M/uL (4.7-6.1); WHITE BLOOD COUNT 7.69 K/uL (4.8-10.8)
[2016-08-10 07:18] LABS: INR 2.1 (0.9-1.1); PROTHROMBIN TIME (PATIENT) 23.6 SECONDS (9.0-12.0)
[2016-08-10 07:43] LABS: BUN/CREATININE RATIO 9.5 (10-20); CALCIUM 8.8 mg/dl (8.5-10.1); CREATININE 1.1 mg/dl (0.60-1.40); POTASSIUM 3.8 mmol/L (3.5-5.1)
[2016-08-10] MEDS: CITALOPRAM 40 MG TAB PO SCH (07:46)
[2016-08-10] MEDS: FLUDROCORTISONE ACETATE 0.1 MG TAB PO SCH (07:46)
[2016-08-10] MEDS: DILTIAZEM HCL 240 MG CAPCR PO SCH (07:46)
[2016-08-10] MEDS: MULTIVITAMIN TAB PO SCH (07:47)
[2016-08-10] MEDS: FUROSEMIDE 40 MG TAB PO SCH (07:47)
--- NOTE | 2016-08-10 08:51 | PULMONARY CONSULTATION ---
DATE OF CONSULTATION: 08/10/2016 DATE OF CONSULTATION: 08/10/2016. HISTORY OF PRESENT ILLNESS: The patient is a pleasant 71-year-old male who was admitted to the hospital on the and Dr. Dacosta has asked me to evaluate the patient from a pulmonary standpoint. The patient carries a history of chronic obstructive lung disease related to heavy tobacco use in the past. He has about a [id number] history of cigarette smoking, quit 30 years ago. He was a truck operator. He presented with shortness of breath over about a 2 week period of time, although he was moving furniture and felt more short of breath for about 2-3 days prior to admission. He denies chest pain, fevers, night sweats, orthopnea, has not had any peripheral edema. He also has some ulcerations in the lower extremities. He was admitted with IV antimicrobial agents. He does use Combivent 1 puff 4 times a day and occasionally uses a nebulizer with the same material at home, but not together. He has had a cough producing some clear sputum. He denies any fevers or night sweats or weight loss. His review of systems otherwise is unremarkable. He has not had any other significant symptoms. Denies any aspiration. PAST MEDICAL HISTORY: Significant for chronic obstructive lung disease and congestive heart failure. He also has a history of chronic kidney disease stage III, carcinoma of the kidney, orthostatic hypotension, chronic shortness of breath, BPH, atrial fibrillation. He has had a nephrectomy, cholecystectomy, total hip arthroplasty, vein stripping in the past. I reviewed his records, he has had some cataract surgery done in the past as well. According to those records, he has had some venous insufficiency states he has had some vein stripping of the lower extremities in the past. 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 SOCIAL HISTORY: He started smoking at age 14. Quit about age 37. Smoked about 4 packs a day. He is not an alcohol user. He is presently in the process of getting . [place] [employer] with no significant exposures. He was in the service in [employer] [place] with no exposures there either. ALLERGIES: None. MEDICATIONS: Noted. He had been on prednisone on a p.r.n. basis and used that without improvement. PHYSICAL EXAMINATION: VITAL SIGNS: According to the Emergency Room notes, his oxygen saturation 92% on room air at the time of admission with a respiratory rate of 88 with decreased breath sounds and expiratory wheezing at the lung bases. GENERAL: Examination reveals the patient to be comfortable. His blood pressure is 116/73, oxygen saturation 96% on room air and he is afebrile. I\T\O is 596 in, 1625 out. Weight 95.5 kilograms. He was 97 kilograms on the 1st at the time of admission. HEAD, EYES, EARS, NOSE, AND THROAT: Unremarkable. No neck vein distention or HJR. Carotid upstroke actually was fairly good. Thyroid nonpalpable. No adenopathy noted. HEART: Distant heart sounds were noted. He has an irregular rhythm at about 70-80 beats per minute. No murmurs or gallops are auscultated. LUNGS: Reveal decreased breath sounds bilaterally, otherwise are clear. Expansion of the thorax actually was fairly good with deep inspiration. ABDOMEN: Soft and obese, nontender. He has no cyanosis, clubbing or edema. The ankles were bandaged. LABORATORY DATA: EKG shows atrial fibrillation with a right bundle branch block, left anterior fascicular block. The chest x-ray revealed hiatal hernia, otherwise it looked fairly good. No pulmonary parenchymal abnormalities were noted. The patient states he did have some pulmonary function studies done as an outpatient in the remote past but I do not have those in the record right now. White count was 20.27, it is down to 7.69, hemoglobin is 12, hematocrit 35.9%. PRP looked fairly good with a potassium of 3.4 yesterday, BUN is 14, creatinine 1.2. His CO2 was 28 on the electrolytes. Coagulation profile revealed an INR of 2.1. Urinalysis was essentially unremarkable. Gram stain of the ulcers revealed coronae bacterium and staph species. MRSA DNA surveillance screen by DNA probe was unremarkable. Blood cultures were unremarkable. IMPRESSION: 1. Chronic obstructive lung disease. This probably explains the patient's significant exertional dyspnea. With a right bundle branch block, atrial fibrillation and left anterior fascicular block certainly coronary artery disease with even some left ventricular dysfunction is a possibility as well. 2. Ulcerations lower extremities, probably related to vascular disease. RECOMMENDATIONS: 1. At this point, I would continue with his inhalers. He is on DuoNeb 4 times a day p.r.n., also has Combivent at the bedside. I think I would use either one, but not both. 2. Add Advair 250/50 one inhalation b.i.d. 3. I would suggest an echocardiogram if he has not had a cardiology evaluation. I think that would be helpful as well. 4. The patient would be a candidate for low dose screening of the thorax with CT scan as an outpatient because of his heavy history of tobacco use. I do not think he needs prednisone at this point. Overall, otherwise he is stable. Thanks for asking me to evaluate Mr. Garcia. He could follow up with Dr. Gomes as an outpatient.
[2016-08-10] MEDS: FLUTICASONE/SALMETEROL 250/50 (ADVAIR) 14 PUFF/1 INHALER INH SCH ×2 (08:58→20:50)
--- NOTE | 2016-08-10 09:26 | Medical Consult ---
Consultation Date of Consultation: August 10, 2016. Attending Physician: Ilana Dacosta DO Reason for Consultation: Antibiotic selection with skin wounds and URTI History of Present Illness 71-year-old male with long history of COPD, stage 3 chronic kidney disease, history of prior renal carcinoma, who was admitted to the hospital with several days of cough, shortness of breath, sore throat, and nasal congestion. He was noted at that time to have severe bilateral lower extremity venous stasis disease, with bilateral malleolar ulcerations with evidence of surrounding cellulitis. He was started empirically on IV antibiotics with vancomycin and Zosyn. Cultures have been taken from his ulcer which have grown a methicillin sensitive Staph aureus. He states that his leg pain has improved since he has been on antibiotics, and pulmonary status improved as well. He has been afebrile and white count has normalized. Sputum culture also positive for methicillin sensitive Staph aureus, but chest x-ray, read by me, shows no evidence of pneumonia. Past Medical/Surgical History Medical Problems: (1) Altered mental status Status: Acute (2) Non-healing ulcer of ankle Status: Acute (3) Renal insufficiency Status: Acute Medical Problems: (1) Afib (2) BPH (benign prostatic hyperplasia) (3) Cellulitis (4) CHF (congestive heart failure) (5) CKD (chronic kidney disease), stage III (6) COPD (chronic obstructive pulmonary disease) (7) Depression (8) GERD (gastroesophageal reflux disease) (9) Leukocytosis (10) Orthostatic hypotension (11) Renal cancer (12) SOB (shortness of breath) Surgical Problems: (1) H/O vein stripping (2) History of nephrectomy (3) Hx of cholecystectomy (4) S/P total hip arthroplasty Family History FH: heart disease Social History Smoking Status: Former Smoker Alcohol Use: none Marital Status: in relationship Occupation Status: retired Allergies Coded Allergies: No Known Allergies (Unverified , 08/07/16) Current Inpatient Medications Current Inpatient Medications Medications (Trade) Dose Ordered Sig/Moises Route Start Time Stop Time Status Last Admin Dose Admin Heparin Sodium (Porcine) (Heparin Sq 5000 Unit/0.5ml) 5,000 unit Q8 SQ 08/07/16 22:00 09/06/16 21:59 08/10/16 05:07 5,000 UNIT Acetaminophen (Tylenol Tab) 650 mg Q4H PRN PO 08/07/16 19:45 09/06/16 19:44 Ondansetron HCl (Zofran Inj) 4 mg Q6H PRN IV 08/07/16 19:45 09/06/16 19:44 Vancomycin HCl (Consult) 1 ea DAILY PRN N/A 08/07/16 21:20 09/06/16 21:19 Citalopram Hydrobromide (celeXA TAB) 60 mg DAILY PO 08/08/16 09:00 09/07/16 08:59 08/10/16 07:46 60 MG Diltiazem HCl (Cardizem Cd Cap) 240 mg QAM PO 08/08/16 09:00 09/07/16 08:59 08/10/16 07:46 240 MG Fludrocortisone Acetate (Florinef Tab) 0.1 mg QAM PO 08/08/16 09:00 09/07/16 08:59 08/10/16 07:46 0.1 MG Furosemide (Lasix Tab) 20 mg QAM PO 08/08/16 09:00 09/07/16 08:59 08/10/16 07:47 20 MG Multivitamins (Multivitamin Tab) 1 tab DAILY PO 08/08/16 09:00 09/07/16 08:59 08/10/16 07:47 1 TAB Warfarin Sodium (Coumadin Tab) 7.5 mg QPM PO 08/07/16 21:00 09/06/16 20:59 08/09/16 20:59 7.5 MG Miscellaneous Information (Order Awaiting Action) 1 ea QS N/A 08/08/16 00:00 09/07/16 00:00 08/08/16 08:00 1 EA Miscellaneous Information (Order Awaiting Action) 1 ea QS N/A 08/08/16 00:00 09/07/16 00:00 08/08/16 07:59 1 EA Potassium Chloride (Klor-Con M10) 10 meq QPM PO 08/07/16 21:00 09/06/16 20:59 08/09/16 21:00 10 MEQ Ranitidine HCl (zANTac TAB) 300 mg HS PO 08/07/16 21:00 09/06/16 20:59 08/09/16 21:00 300 MG Piperacillin Sod/ Tazobactam Sod 1 ea 1 ea UD PRN N/A 08/07/16 21:30 09/06/16 21:29 Piperacillin Sod/ Tazobactam Sod/ Dextrose (Zosyn Iv/D5 100ml) 115 ml @ 28.75 mls/ hr Q8H IV 08/08/16 06:00 08/18/16 05:59 08/10/16 05:05 28.75 MLS/HR Multi-Ingredient Ointment (Eucerin Unscented Cr) 1 appln DAILY PRN EXT 08/08/16 14:15 09/07/16 14:14 08/09/16 13:01 1 APPLN Buspirone HCl (Buspar Tab) 10 mg BID PO 08/08/16 21:00 09/07/16 20:59 08/10/16 07:45 10 MG Albuterol/ Ipratropium 3 ml 3 ml QIDR PRN INH 08/09/16 12:00 09/08/16 11:59 08/09/16 15:22 3 ML Vancomycin HCl/ Sodium Chloride (Vancomycin Inj/ Nss 250ml) 276 ml @ 125 mls/hr Q12@10,22 IV 08/10/16 10:00 08/17/16 09:59 Salmeterol Xinafoate/ Fluticasone (Advair Diskus 250/50 Inh) 1 puff BID INH 08/10/16 09:00 09/09/16 08:59 08/10/16 08:58 1 PUFF Review of Systems Constitutional: No fever Eyes: No problem reported ENT: + nasal symptoms, + sore throat Respiratory: + cough, + shortness of breath Cardiovascular: No problem reported Abdomen: No problem reported Musculoskeletal: + swelling Genitourinary - Male: No problem reported Neurologic: No problem reported Psychiatric: No problem reported Endocrine: No problem reported Hematologic / Lymphatic: No problem reported Integumentary: + new/changing skin lesions Allergic / Immunologic: No problem reported Physical Exam Date Time Temp Pulse Resp B/P Pulse Ox O2 Delivery O2 Flow Rate FiO2 08/10/16 07:11 37.2 87 18 116/73 92 Room Air 08/10/16 00:00 96 Room Air 08/09/16 23:32 37.3 95 18 129/76 93 Nasal Cannula 2.0 08/09/16 16:00 96 Room Air 08/09/16 15:53 36.4 66 18 135/77 96 Nasal Cannula 2.0 08/09/16 15:22 82 16 91 Room Air 08/09/16 14:41 37.1 95 20 114/74 93 Room Air 08/09/16 14:11 37.0 108 18 93 2.0 08/09/16 12:38 37.0 108 18 111/65 93 Room Air 08/09/16 11:20 85 16 91 Room Air General Appearance: WD/WN, no apparent distress Head: normocephalic, atraumatic Eyes: normal inspection, EOMI, sclerae normal ENT: normal ENT inspection, pharynx normal Neck: supple, no adenopathy, thyroid normal, trachea midline Respiratory/Chest: chest non-tender, lungs clear, normal breath sounds, no respiratory distress Cardiovascular: no gallop, no murmur, + irregularly irregular Abdomen/GI: normal bowel sounds, non tender, soft, no organomegaly Back: normal inspection, no CVA tenderness Extremities/Musculoskelatal: no calf tenderness, + inflammation, + swelling Neurologic/Psych: alert, normal mood/affect, oriented x 3 Skin: normal color, no rash, + pertinent finding (chronic venous stasis changes both lower legs, bilateral malleolar ulcers, + erythema) Lymphatic: no adenopathy Laboratory Results RUN DATE: 08/10/16 [facility] LAB PAGE 1 RUN TIME: 1003 Specimen Inquiry PATIENT: RAMESH PANIAGUA LOC: [id number] U # : [id number] AGE/SX: 71/M ROOM: W263 REG : 08/07/[address]: Ilana Dacosta DO : 1945 BED: 1 DIS : STATUS: ADM IN TLOC: SPEC #: [id number] DOMINIC: 08/07/16 STATUS: COMP REQ #: [id number] RECD: 08/07/[address]: Aleixa Valdez PA-C SOURCE: ULCER ENTR: 08/07/[address]: George Calderon DO SPDESC: Jamarcus Cormier M.D. Vangala, Satish K., MD ORDERED: SURF BALA ASH/MAYRA COMMENTS: Has Specimen Been Obtained/Collected? Y Procedure Result Verified Site GRAM STAIN Final 05/02/17-0916 RESULT FEW GRAM POSITIVE BACILLI RARE GRAM POSITIVE COCCI RARE EPITHELIAL CELLS NO WBCs SEEN SURFACE WOUND CULTURE Final 08/10/16-1003 Organism 1 CORYNEBACTERIUM SPECIES QUANITY MANY SENS NO SENSITIVITY TO FOLLOW +MIXWOUND PLUS LOW COUNTS OF PROBABLE SKIN JASON Organism 2 STAPHYLOCOCCUS AUREUS QUANITY FEW SENS SENSITIVITY TO FOLLOW 2. STAPHYLOCOCCUS AUREUS Target Route Dose RX AB Cost M.I.C. IQ ------ ----- ------ -- ------ -------- - ------ TRIMET/SULFA S <=0.5/ 9.5 * OXACILLIN S <=0.25 VANCOMYCIN S 2 ERYTHROMYCIN S <=0.5 TETRACYCLINE S <=4 CLINDAMYCIN S <=0.5 DAPTOMYCIN S <=0.5 S = SENSITIVE I = INTERMEDIATE R = RESISTANT END OF REPORT Last 24 Hours Test 08/09/16 21:28 08/10/16 06:58 Vancomycin Level Trough 13.1 mcg/ml White Blood Count 7.69 K/uL Red Blood Count 4.17 M/uL Hemoglobin 12.0 g/dL Hematocrit 35.9 % Mean Corpuscular Volume 86.1 fL Mean Corpuscular Hemoglobin 28.8 pg Mean Corpuscular Hemoglobin Concent 33.4 g/dl RDW Standard Deviation 41.9 fL RDW Coefficient of Variation 13.2 % Platelet Count 145 K/uL Mean Platelet Volume 8.5 fL Prothrombin Time 23.6 SECONDS Prothromb Time International Ratio 2.1 Sodium Level 143 mmol/L Potassium Level 3.8 mmol/L Chloride Level 107 mmol/L Carbon Dioxide Level 29 mmol/L Anion Gap 7.0 mmol/L Blood Urea Nitrogen 11 mg/dl Creatinine 1.10 mg/dl Est Creatinine Clear Calc Drug Dose 74.7 ml/min Estimated GFR () 79.0 Estimated GFR (Non- 68.1 BUN/Creatinine Ratio 9.5 Random Glucose 100 mg/dl Calcium Level 8.8 mg/dl Magnesium Level 2.0 mg/dl LEFT ANKLE MIN 3 VIEWS ROUTINE CLINICAL HISTORY: Left ankle ulcer. Evaluate for ostium myelitis. COMPARISON: None FINDINGS: Alignment of left ankle is anatomic. There is no fracture or radiopaque foreign body. There is no radiographic evidence of osteomyelitis. There is soft tissue swelling of the medial left ankle. IMPRESSION: No acute fracture or radiographic evidence of osteomyelitis. Electronically signed by: Giuliano Laws M.D. 08/07/2016 3:58 PM Dictated Date/Time: 08/07/2016 3:56 PM The status of this report is Signed. Draft = Not yet reviewed or Assessment & Plan Bilateral LE cellulitis in setting of chronic venous stasis disease and leg ulcers with cultures positive for MSSA. Will change to IV cefazolin, and hopefully can transition to oral cephalexin in near future. This will also cover any potential respiratory infection. Patient likely would benefit from follow-up with [facility] after discharge for leg ulcerations. Will follow.
[2016-08-10] MEDS: CEFAZOLIN IV 2,000 MG in DEXTROSE 5% 50ML 50 ML IV SCH ×2 (09:47→17:59)
[2016-08-10] MEDS ORDERED: VANCOMYCIN INJ 1,300 MG in SODIUM CHLORIDE 0.9% 250ML 250 ML IV SCH (10:00)
--- NOTE | 2016-08-10 12:30 | ECHOCARDIOGRAM REPORT ---
*NOTICE TO RECEIVING [employer]Y This information is strictly Confidential and protected under [place] law. [place] law prohibits you from making any further disclosure of this information unless further disclosure is expressly permitted by the written consent of the person to whom it pertains or is authorized by law. A general authorization for the release of medical or other information is not sufficient for this purpose. Hospital accepts no responsibility if the information is made available to any other person, INCLUDING THE PATIENT. Interpretation Summary * Name: RAMESH PANIAGUA Study Date: 08/10/2016 10:47 AM BP: 129/76 mmHg * Patient Location: .[id number]\W263\S\1 HR: 96 * : 1945 (M/d/yyyy) Gender: Male Height: 71 in * Age: 71 yrs Ethnicity: CA Weight: 209 lb * Ordering Physician: Ilana Dacosta * Performed By: Zenaida Bhandari * * Reason For Study: ESCOBAR * BSA: 2.1 m2 * The study was technically adequate. * There is no comparison study available. * -- Conclusions -- * Ejection Fraction = 55-60%. * There is mild concentric left ventricular hypertrophy. * The base and mid inferior wall is moderately hypokinetic. * The base posterior wall is moderately hypokinetic. * There is mild mitral regurgitation. * There is trace tricuspid regurgitation. Procedure Details * A complete two-dimensional transthoracic echocardiogram was performed (2D, M-mode, Doppler and color flow Doppler). Left Ventricle * The left ventricle is normal in size. * There is no thrombus. * There is mild concentric left ventricular hypertrophy. * Ejection Fraction = 55-60%. * Left ventricular systolic function is normal. * The base and mid inferior wall is moderately hypokinetic. The base posterior wall is moderately hypokinetic. Right Ventricle * The right ventricle is normal size. * The right ventricular systolic function is normal as assessed by tricuspid annular plane systolic excursion (TAPSE) (normal >1.5 cm). Atria * The left atrium is mildly dilated. * The right atrium is mildly dilated. * There is no evidence of atrial septal defect, but resolution does not allow assessment for a patent foramen ovale. Mitral Valve * The mitral valve is normal. * There is no mitral valve stenosis. * There is mild mitral regurgitation. Tricuspid Valve * The tricuspid valve is normal. * There is no tricuspid stenosis. * There is trace tricuspid regurgitation. Aortic Valve * The aortic valve is trileaflet. * Aortic stenosis is absent. * There is no significant aortic regurgitation. Pulmonic Valve * The pulmonary valve is not well seen, but the Doppler examination is normal without significant regurgitation or stenosis. Great Vessels * The aortic root and proximal ascending aorta are normal sized. Pericardium/Pleural * There is no pericardial effusion. Great Vessels * Normal inferior vena cava diameter and respiratory variation suggests normal central venous pressure. MMode 2D Measurements and Calculations IVSd 1.7 cm IVSs 2.2 cm LVIDd 4.9 cm LVIDs 3.4 cm LVPWd 1.1 cm LVPWs 1.8 cm IVS/LVPW 1.5 FS 29.5 % EDV(Teich) 111.4 ml ESV(Teich) 48.7 ml EF(Teich) 56.3 % EDV(cubed) 115.7 ml ESV(cubed) 40.6 ml EF(cubed) 64.9 % % IVS thick 25.7 % % LVPW thick 59.4 % LV mass(C)d 291.5 grams LV mass(C)dI 135.6 grams/m\S\2 LV mass(C)s 308.7 grams LV mass(C)sI 143.7 grams/m\S\2 CO(Teich) 5.8 l/min CI(Teich) 2.7 l/min/m\S\2 SV(Teich) 62.7 ml SI(Teich) 29.2 ml/m\S\2 CO(cubed) 6.9 l/min CI(cubed) 3.2 l/min/m\S\2 SV(cubed) 75.2 ml SI(cubed) 35.0 ml/m\S\2 ACS 2.1 cm LA dimension 4.3 cm asc Aorta Diam 3.6 cm LVOT diam 2.2 cm LVOT area 3.9 cm\S\2 LVAd ap4 23.2 cm\S\2 LVLd ap4 7.0 cm EDV(MOD-sp4) 62.4 ml LVAs ap4 14.0 cm\S\2 LVLs ap4 6.2 cm ESV(MOD-sp4) 27.1 ml EF(MOD-sp4) 56.6 % LVAd ap2 26.3 cm\S\2 LVLd ap2 7.1 cm EDV(MOD-sp2) 80.8 ml LVAs ap2 15.6 cm\S\2 LVLs ap2 5.6 cm ESV(MOD-sp2) 35.9 ml EF(MOD-sp2) 55.6 % CO(MOD-sp4) 3.2 l/min CI(MOD-sp4) 1.5 l/min/m\S\2 SV(MOD-sp4) 35.3 ml SI(MOD-sp4) 16.4 ml/m\S\2 CO(MOD-sp2) 4.1 l/min CI(MOD-sp2) 1.9 l/min/m\S\2 SV(MOD-sp2) 44.9 ml SI(MOD-sp2) 20.9 ml/m\S\2 Doppler Measurements and Calculations MV E max shaun 113.5 cm/sec MV dec time 0.21 sec Ao V2 max 104.2 cm/sec Ao max PG 4.3 mmHg Ao max PG (full) 0.91 mmHg SHAILA(V,A) 3.4 cm\S\2 SHAILA(V,D) 3.4 cm\S\2 LV V1 max PG 3.4 mmHg LV V1 max 92.6 cm/sec MR max shaun 502.2 cm/sec MR max PG 100.9 mmHg PA V2 max 71.8 cm/sec PA max PG 2.1 mmHg TR max shaun 269.4 cm/sec
--- NOTE | 2016-08-10 14:38 | Progress Note ---
Medicine Progress Note Date & Time of Visit: August 10, 2016 at 14:23. Subjective This is a 71 year old male with a PMH of atrial fibrillation on Coumadin, COPD and nocturnal hypoxia and nocturnal O2 use, diastolic CHF who presents with SOB and sore throat for several days -breathing improved today -ID saw patient--changed abx to Ancef -pulm saw patient-->added Advair and rec stopping nebs in presence of Combivent -TTE this morning with some areas of hypokinesis but overall good LV function -patient states that he has been very short of breath for a prolonged period of time -He states that he is around his baseline at this time -His wounds are still draining and now his R leg is more warm, swollen with a positive Mei's sign -US ordered to rule out DVT Objective Last 8 Hrs Date Time Temp Pulse Resp B/P Pulse Ox O2 Delivery O2 Flow Rate FiO2 08/10/16 10:35 Room Air 08/10/16 07:11 37.2 87 18 116/73 92 Room Air Physical Exam: GEN: obese, alert and appropriate, dyspnea on exertion is somewhat improved from yesterday HEENT: NC/AT, normal sclerae CARDIO: reg rate, S1/2 heard without m/g/r LUNGS: CTA bilaterally, no crackles, rales or wheezes, good diaphragmatic excursion ABD: soft, obese/protuberant, non-tender, non-distended, no rebound or guarding , +BS EXTREMITY: dressings removed from lower extremities. R leg more warm, swollen with pitting edema and painful to calf squeeze. L leg negative Mei's sign, no redness, quarter size Stage II venous stasis ulcer on medial malleolus, draining serous fluid. NEURO: CN 2-12 grossly intact MUSC: strength intact throughout, no gross focal deficits SKIN: warm and dry and wounds as above. Laboratory Results: 08/10/16 06:58 08/10/16 06:58 Test 08/07/16 15:24 08/07/16 18:22 08/07/16 18:37 08/07/16 18:56 D-Dimer 320 ug/L FEU (0-500) Total Bilirubin 0.5 mg/dl (0.2-1) Direct Bilirubin 0.2 mg/dl (0-0.2) Aspartate Amino Transf (AST/SGOT) 20 U/L (15-37) Alanine Aminotransferase (ALT/SGPT) 28 U/L (12-78) Alkaline Phosphatase 81 U/L (45-117) Total Creatine Kinase 148 U/L (39-308) Creatine Kinase MB 1.7 ng/ml (0.5-3.6) Creatine Kinase MB Ratio 1.1 (0-3.0) Troponin I < 0.015 ng/ml (0-0.045) Pro-B-Type Natriuretic Peptide 3744 pg/ml (0-900) Total Protein 6.8 gm/dl (6.4-8.2) Albumin 2.9 gm/dl (3.4-5.0) Thyroid Stimulating Hormone (TSH) 0.534 uIu/ml (0.300-4.500) Bedside Lactic Acid Venous 1.03 mmol/L (0.90-1.70) Activated Partial Thromboplast Time 47.8 SECONDS (21.0-31.0) Partial Thromboplastin Ratio 1.8 Urine Color DK YELLOW Urine Appearance CLEAR (CLEAR) Urine pH 5.5 (4.5-7.5) Urine Specific [place] 1.019 (1.000-1.030) Urine Protein NEG (NEG) Urine Glucose (UA) NEG (NEG) Urine Ketones TRACE (NEG) Urine Occult Blood NEG (NEG) Urine Nitrite NEG (NEG) Urine Bilirubin NEG (NEG) Urine Urobilinogen NEG (NEG) Urine Leukocyte Esterase NEG (NEG) Test 08/08/16 06:25 08/09/16 21:28 08/10/16 06:58 Immature Granulocyte % (Auto) 0.2 % White Blood Count 10.94 K/uL (4.8-10.8) Red Blood Count 4.39 M/uL (4.7-6.1) 4.17 M/uL (4.7-6.1) Hemoglobin 12.4 g/dL (14.0-18.0) Hematocrit 37.8 % (42-52) Mean Corpuscular Volume 86.1 fL (80-100) 86.1 fL (80-100) Mean Corpuscular Hemoglobin 28.2 pg (25-34) 28.8 pg (25-34) Mean Corpuscular Hemoglobin Concent 32.8 g/dl (32-36) 33.4 g/dl (32-36) Platelet Count 145 K/uL (130-400) Mean Platelet Volume 8.9 fL (7.4-10.4) 8.5 fL (7.4-10.4) Neutrophils (%) (Auto) 82.3 % Lymphocytes (%) (Auto) 10.3 % Monocytes (%) (Auto) 5.3 % Eosinophils (%) (Auto) 1.8 % Basophils (%) (Auto) 0.1 % Neutrophils # (Auto) 9.00 K/uL (1.4-6.5) Lymphocytes # (Auto) 1.13 K/uL (1.2-3.4) Monocytes # (Auto) 0.58 K/uL (0.11-0.59) Eosinophils # (Auto) 0.20 K/uL (0-0.5) Basophils # (Auto) 0.01 K/uL (0-0.2) Immature Granulocyte # (Auto) 0.02 K/uL (0.00-0.02) Estimated Average Glucose 126 mg/dl Hemoglobin A1c 6.0 % (4.5-5.6) Vancomycin Level Trough 13.1 mcg/ml (SEE COMMENT) RDW Standard Deviation 41.9 fL (36.4-46.3) RDW Coefficient of Variation 13.2 % (11.5-14.5) Prothrombin Time 23.6 SECONDS (9.0-12.0) Prothromb Time International Ratio 2.1 (0.9-1.1) Anion Gap 7.0 mmol/L (3-11) Est Creatinine Clear Calc Drug Dose 74.7 ml/min Estimated GFR () 79.0 Estimated GFR (Non- 68.1 BUN/Creatinine Ratio 9.5 (10-20) Calcium Level 8.8 mg/dl (8.5-10.1) Magnesium Level 2.0 mg/dl (1.8-2.4) Date/Time Source Procedure Growth Status 08/07/16 18:15 Blood Blood Culture - Preliminary NO GROWTH TO DATE. Resulted 08/09/16 13:11 Pharyngeal Swab Throat Culture - Preliminary LIGHT NORMAL JASON Present, Final Rep... Resulted 08/07/16 22:25 Sputum Expectorated Sputum Gram Stain - Final Resulted 08/07/16 22:25 Sputum Culture - Preliminary Staphylococcus Aureus Haemo. Influ Betalactamase Pos Resulted 08/07/16 22:25 Ulcer Ankle Right Gram Stain - Final Complete 08/07/16 22:25 Wound Culture - Final Corynebacterium Species Staphylococcus Aureus Complete Last 24 Hours Test 08/09/16 21:28 08/10/16 06:58 Vancomycin Level Trough 13.1 mcg/ml White Blood Count 7.69 K/uL Red Blood Count 4.17 M/uL Hemoglobin 12.0 g/dL Hematocrit 35.9 % Mean Corpuscular Volume 86.1 fL Mean Corpuscular Hemoglobin 28.8 pg Mean Corpuscular Hemoglobin Concent 33.4 g/dl RDW Standard Deviation 41.9 fL RDW Coefficient of Variation 13.2 % Platelet Count 145 K/uL Mean Platelet Volume 8.5 fL Prothrombin Time 23.6 SECONDS Prothromb Time International Ratio 2.1 Sodium Level 143 mmol/L Potassium Level 3.8 mmol/L Chloride Level 107 mmol/L Carbon Dioxide Level 29 mmol/L Anion Gap 7.0 mmol/L Blood Urea Nitrogen 11 mg/dl Creatinine 1.10 mg/dl Est Creatinine Clear Calc Drug Dose 74.7 ml/min Estimated GFR () 79.0 Estimated GFR (Non- 68.1 BUN/Creatinine Ratio 9.5 Random Glucose 100 mg/dl Calcium Level 8.8 mg/dl Magnesium Level 2.0 mg/dl Assessment & Plan This is a 71 year old male with a PMH of atrial fibrillation on Coumadin, COPD and nocturnal hypoxia and nocturnal O2 use, diastolic CHF who presents with SOB and sore throat for several days Dyspnea Likely 2/2 acute exacerbation of COPD which is again improved today Appreciate pulm eval. Per recs will stop Duonebs and cont with Combivent. Advair was added. uses Nocturnal O2, which we will continue TTE this morning showed some hypokinetic segments of LV but overall good LV function with EF 55--60% may benefit from an outpatient Cardiology evaluation when feeling better Today, his R leg is much more red and swollen than the R, so will evaluate for blood clot (screen both legs) Wound on L leg is worse but with good granulation tissue Wound on R leg is a pinpoint area of drainage only Lower Extremity Cellulitis Venous Stasis Ulceration vs infection patient presented with ulcers on bilateral LE erythematous and warm to touch; states he dresses these himself presented with an elevated WBC (infection vs. prednisone use as outpatient)-- resolved to normal appreciate ID recs on changing abx to Cefazolin--cont with this with eventual transition to PO Keflex cont wound care daily awaiting US of legs as above. Atrial Fibrillation currently in A. Fib but rate is controlled continue Diltiazem INR therapeutic today Diastolic CHF, chronic: no evidence of exacerbation continue home dose of Lasix TTE today as above CKD stage 3 Hx. of Renal CA s/p nephrectomy At baseline avoid nephrotoxic agents if possible Depression stable with meds, continue home regimen Orthostatic Hypotension continue Florinef Hypokalemia-replaced PO, recheck in am along with Mg level DVT ppx subq heparin FULL CODE Ilana Dacosta DO [facility] Hospitalist Discharge planning: home Current Inpatient Medications: Current Inpatient Medications Medications (Trade) Dose Ordered Sig/Moises Route Start Time Stop Time Status Last Admin Dose Admin Heparin Sodium (Porcine) (Heparin Sq 5000 Unit/0.5ml) 5,000 unit Q8 SQ 08/07/16 22:00 09/06/16 21:59 08/10/16 05:07 5,000 UNIT Acetaminophen (Tylenol Tab) 650 mg Q4H PRN PO 08/07/16 19:45 09/06/16 19:44 Ondansetron HCl (Zofran Inj) 4 mg Q6H PRN IV 08/07/16 19:45 09/06/16 19:44 Citalopram Hydrobromide (celeXA TAB) 60 mg DAILY PO 08/08/16 09:00 09/07/16 08:59 08/10/16 07:46 60 MG Diltiazem HCl (Cardizem Cd Cap) 240 mg QAM PO 08/08/16 09:00 09/07/16 08:59 08/10/16 07:46 240 MG Fludrocortisone Acetate (Florinef Tab) 0.1 mg QAM PO 08/08/16 09:00 09/07/16 08:59 08/10/16 07:46 0.1 MG Furosemide (Lasix Tab) 20 mg QAM PO 08/08/16 09:00 09/07/16 08:59 08/10/16 07:47 20 MG Multivitamins (Multivitamin Tab) 1 tab DAILY PO 08/08/16 09:00 09/07/16 08:59 08/10/16 07:47 1 TAB Warfarin Sodium (Coumadin Tab) 7.5 mg QPM PO 08/07/16 21:00 09/06/16 20:59 08/09/16 20:59 7.5 MG Miscellaneous Information (Order Awaiting Action) 1 ea QS N/A 08/08/16 00:00 09/07/16 00:00 08/08/16 08:00 1 EA Miscellaneous Information (Order Awaiting Action) 1 ea QS N/A 08/08/16 00:00 09/07/16 00:00 08/08/16 07:59 1 EA Potassium Chloride (Klor-Con M10) 10 meq QPM PO 08/07/16 21:00 09/06/16 20:59 08/09/16 21:00 10 MEQ Ranitidine HCl (zANTac TAB) 300 mg HS PO 08/07/16 21:00 09/06/16 20:59 08/09/16 21:00 300 MG Multi-Ingredient Ointment (Eucerin Unscented Cr) 1 appln DAILY PRN EXT 08/08/16 14:15 09/07/16 14:14 08/09/16 13:01 1 APPLN Buspirone HCl (Buspar Tab) 10 mg BID PO 08/08/16 21:00 09/07/16 20:59 08/10/16 07:45 10 MG Salmeterol Xinafoate/ Fluticasone 1 puff 1 puff BID INH 08/10/16 09:00 09/09/16 08:59 08/10/16 08:58 1 PUFF Cefazolin Sodium/ Dextrose (Ancef Iv/D5 50ml) 60 ml @ 100 mls/hr Q8H IV 08/10/16 10:00 08/20/16 09:29 08/10/16 09:47 100 MLS/HR
[2016-08-10 14:51] VITALS: BP 112/72; PULSE 104; TEMP 37.1; O2SAT 90
[2016-08-10 14:59] VITALS: BP 119/80; PULSE 89; TEMP 37; O2SAT 91
--- NOTE | 2016-08-10 15:48 | DIAGNOSTIC IMAGING REPORT ---
ULTRASOUND BILATERAL LOWER EXTREMITY VENOUS CLINICAL HISTORY: Lower extremity erythema and swelling. COMPARISON STUDY: No priors. TECHNIQUE: Real-time, grayscale, and color Doppler sonography of the deep veins of the right and left lower extremity was performed from the inguinal crease to the calf. Compression and augmentation were utilized. FINDINGS: There is no sonographic evidence of deep venous thrombosis identified in the right or left lower extremity. The common femoral, superficial femoral, and popliteal veins are patent and normally compressible bilaterally. The greater saphenous vein and the profunda femoris vein at the junction with the common femoral vein are clear in both legs. The visualized calf veins are patent bilaterally. Prominent inguinal lymph nodes are identified and likely on a reactive basis. IMPRESSION: There is no sonographic evidence of deep venous thrombosis identified in the right or left lower extremity. Electronically signed by: Tobisa Schaefer M.D. 08/10/2016 3:47 PM Dictated Date/Time: 08/10/2016 3:46 PM
[2016-08-10] MEDS: RANITIDINE HCL 150 MG TAB PO SCH (20:51)
[2016-08-10] MEDS: WARFARIN SOD 7.5 MG TAB PO SCH (20:52)
[2016-08-10] MEDS: POTASSIUM CHLORIDE 10 MEQ TABCR PO SCH (20:53)
[2016-08-10 23:09] VITALS: BP 118/74; PULSE 105; TEMP 36.8; O2SAT 94
[2016-08-11] MEDS: CEFAZOLIN IV 2,000 MG in DEXTROSE 5% 50ML 50 ML IV SCH ×3 (02:21→17:49)
[2016-08-11] MEDS: HEPARIN SOD 5000 UNIT/0.5 ML CARP SQ SCH ×2 (06:26→14:06)
--- NOTE | 2016-08-11 07:18 | PULMONARY PROGRESS NOTE ---
DATE: 08/11/2016 From a pulmonary standpoint the patient is quite stable. He is sleeping on his left side, respiratory rate of 16 with no evidence of any snoring or upper airway obstruction. His oxygen saturation looks great at 94% on room air and he is afebrile. He denies cough or chest pain. He started the Advair yesterday and we discussed the use his inhalers at length today. His weight is stable at 95.5 kilograms. He was 97 kilograms on the 1st. According to nurses' note, he had a fairly good night last night. He is tolerating IV antimicrobial agents well. PHYSICAL EXAMINATION: NECK: Posterior pharynx shows no evidence of thrush. No neck vein distention or HJR. HEART: Regular rate and rhythm. No murmurs are heard. LUNGS: Clear with decreased breath sounds bilaterally. ABDOMEN: Soft, nontender. EXTREMITIES: He has no cyanosis, clubbing or edema. LABORATORY DATA: Pending. IMPRESSION: 1. Chronic obstructive lung disease. 2. Atrial fibrillation. 3. Ulcerations lower extremities. He has now been evaluated by Dr. Carrasquillo. RECOMMENDATIONS: 1. At this point, I would continue with his present medications. Avoid use of any steroids. The Advair can be given 1 inhalation b.i.d. with a meal. 2. Hemodynamically he is stable. I think the Florinef, if that is used for blood pressure stability, probably could be discontinued. Overall he is stable.
[2016-08-11 07:19] LABS: INR 2.1 (0.9-1.1); PROTHROMBIN TIME (PATIENT) 23.2 SECONDS (9.0-12.0)
[2016-08-11 07:35] LABS: CREATININE 1.1 mg/dl (0.60-1.40)
[2016-08-11 07:57] VITALS: BP 103/62; PULSE 91; TEMP 36.6; O2SAT 94
[2016-08-11] MEDS: FLUTICASONE/SALMETEROL 250/50 (ADVAIR) 14 PUFF/1 INHALER INH SCH ×2 (08:55→20:49)
[2016-08-11] MEDS: CITALOPRAM 40 MG TAB PO SCH (08:55)
[2016-08-11] MEDS: MULTIVITAMIN TAB PO SCH (08:56)
[2016-08-11] MEDS: DILTIAZEM HCL 240 MG CAPCR PO SCH (08:56)
[2016-08-11] MEDS: FUROSEMIDE 40 MG TAB PO SCH (08:56)
[2016-08-11] MEDS: FLUDROCORTISONE ACETATE 0.1 MG TAB PO SCH (08:57)
--- NOTE | 2016-08-11 14:39 | Progress Note ---
Medicine Progress Note Date & Time of Visit: August 11, 2016 at 14:29. Subjective -breathing is back to baseline per patient who is not requiring oxygen -he reports some improvement in the leg regarding pain and appearance -he is tolerating PO and is ambulatory -denies any other symptoms at this time. Objective Last 8 Hrs Date Time Temp Pulse Resp B/P Pulse Ox O2 Delivery O2 Flow Rate FiO2 08/11/16 08:00 Room Air 2.0 08/11/16 07:57 36.6 91 18 103/62 94 Nasal Cannula 2.0 Physical Exam: GEN: obese, alert and appropriate HEENT: NC/AT, normal sclerae CARDIO: reg rate, no m/g/r LUNGS: CTA bilaterally, no crackles, rales or wheezes, good diaphragmatic excursion ABD: soft, obese/protuberant, non-tender, non-distended, no rebound or guarding , +BS EXTREMITY: dressings are in place. R leg still warm with improved erythema. Quarter size Stage II venous stasis ulcer on medial malleolus, draining serous fluid. NEURO: CN 2-12 grossly intact, no gross focal deficits. MUSC: strength intact throughout, no gross focal deficits SKIN: warm and dry and wounds as above. Laboratory Results: 08/10/16 06:58 08/10/16 06:58 08/11/16 06:45 Test 08/07/16 15:24 08/07/16 18:22 08/07/16 18:37 08/07/16 18:56 D-Dimer 320 ug/L FEU (0-500) Total Bilirubin 0.5 mg/dl (0.2-1) Direct Bilirubin 0.2 mg/dl (0-0.2) Aspartate Amino Transf (AST/SGOT) 20 U/L (15-37) Alanine Aminotransferase (ALT/SGPT) 28 U/L (12-78) Alkaline Phosphatase 81 U/L (45-117) Total Creatine Kinase 148 U/L (39-308) Creatine Kinase MB 1.7 ng/ml (0.5-3.6) Creatine Kinase MB Ratio 1.1 (0-3.0) Troponin I < 0.015 ng/ml (0-0.045) Pro-B-Type Natriuretic Peptide 3744 pg/ml (0-900) Total Protein 6.8 gm/dl (6.4-8.2) Albumin 2.9 gm/dl (3.4-5.0) Thyroid Stimulating Hormone (TSH) 0.534 uIu/ml (0.300-4.500) Bedside Lactic Acid Venous 1.03 mmol/L (0.90-1.70) Activated Partial Thromboplast Time 47.8 SECONDS (21.0-31.0) Partial Thromboplastin Ratio 1.8 Urine Color DK YELLOW Urine Appearance CLEAR (CLEAR) Urine pH 5.5 (4.5-7.5) Urine Specific [place] 1.019 (1.000-1.030) Urine Protein NEG (NEG) Urine Glucose (UA) NEG (NEG) Urine Ketones TRACE (NEG) Urine Occult Blood NEG (NEG) Urine Nitrite NEG (NEG) Urine Bilirubin NEG (NEG) Urine Urobilinogen NEG (NEG) Urine Leukocyte Esterase NEG (NEG) Test 08/08/16 06:25 08/09/16 21:28 08/10/16 06:58 08/11/16 06:45 Immature Granulocyte % (Auto) 0.2 % White Blood Count 10.94 K/uL (4.8-10.8) Red Blood Count 4.39 M/uL (4.7-6.1) 4.17 M/uL (4.7-6.1) Hemoglobin 12.4 g/dL (14.0-18.0) Hematocrit 37.8 % (42-52) Mean Corpuscular Volume 86.1 fL (80-100) 86.1 fL (80-100) Mean Corpuscular Hemoglobin 28.2 pg (25-34) 28.8 pg (25-34) Mean Corpuscular Hemoglobin Concent 32.8 g/dl (32-36) 33.4 g/dl (32-36) Platelet Count 145 K/uL (130-400) Mean Platelet Volume 8.9 fL (7.4-10.4) 8.5 fL (7.4-10.4) Neutrophils (%) (Auto) 82.3 % Lymphocytes (%) (Auto) 10.3 % Monocytes (%) (Auto) 5.3 % Eosinophils (%) (Auto) 1.8 % Basophils (%) (Auto) 0.1 % Neutrophils # (Auto) 9.00 K/uL (1.4-6.5) Lymphocytes # (Auto) 1.13 K/uL (1.2-3.4) Monocytes # (Auto) 0.58 K/uL (0.11-0.59) Eosinophils # (Auto) 0.20 K/uL (0-0.5) Basophils # (Auto) 0.01 K/uL (0-0.2) Immature Granulocyte # (Auto) 0.02 K/uL (0.00-0.02) Estimated Average Glucose 126 mg/dl Hemoglobin A1c 6.0 % (4.5-5.6) Vancomycin Level Trough 13.1 mcg/ml (SEE COMMENT) RDW Standard Deviation 41.9 fL (36.4-46.3) RDW Coefficient of Variation 13.2 % (11.5-14.5) Anion Gap 7.0 mmol/L (3-11) BUN/Creatinine Ratio 9.5 (10-20) Calcium Level 8.8 mg/dl (8.5-10.1) Magnesium Level 2.0 mg/dl (1.8-2.4) Prothrombin Time 23.2 SECONDS (9.0-12.0) Prothromb Time International Ratio 2.1 (0.9-1.1) Est Creatinine Clear Calc Drug Dose 74.3 ml/min Estimated GFR () 79.0 Estimated GFR (Non- 68.1 Date/Time Source Procedure Growth Status 08/07/16 18:15 Blood Blood Culture - Preliminary NO GROWTH TO DATE. Resulted 08/09/16 13:11 Pharyngeal Swab Throat Culture - Final LIGHT NORMAL JASON. Complete 08/07/16 22:25 Sputum Expectorated Sputum Gram Stain - Final Complete 08/07/16 22:25 Sputum Culture - Final Staphylococcus Aureus Haemo. Influ Betalactamase Pos Complete 08/07/16 22:25 Ulcer Ankle Right Gram Stain - Final Complete 08/07/16 22:25 Wound Culture - Final Corynebacterium Species Staphylococcus Aureus Complete Last 24 Hours Test 08/11/16 06:45 Prothrombin Time 23.2 SECONDS Prothromb Time International Ratio 2.1 Creatinine 1.10 mg/dl Est Creatinine Clear Calc Drug Dose 74.3 ml/min Estimated GFR () 79.0 Estimated GFR (Non- 68.1 Assessment & Plan This is a 71 year old male with a PMH of atrial fibrillation on Coumadin, COPD and nocturnal hypoxia and nocturnal O2 use, diastolic CHF who presents with SOB and sore throat for several days ASSESSMENT: Dyspnea 2/2 COPD exacerbation-resolved Lower Extremity Cellulitis Venous Stasis Ulceration vs infection Persistent atrial Fibrillation-on coumadin, therapeutic INR Diastolic CHF, chronic CKD stage 3 Hx. of Renal CA s/p nephrectomy Depression Orthostatic Hypotension PLAN: No steroids indicated. Appreciate pulm eval. Per recs will stop Duonebs and cont with Combivent. Advair was added. uses Nocturnal O2, which we will continue TTE on 08/10 revealed some hypokinetic segments of LV but overall good LV function with EF 55--60% may benefit from an outpatient Cardiology evaluation when feeling better for monitoring of this in setting of chronic ESCBOAR R leg is somewhat improved improved WRT erythema and swelling on IV Ancef, cont until more improvement is seen US of bilat LE negative for DVT on 08/10 Cont Dilt Cont coumadin, daily INR DVT ppx subq heparin FULL CODE DO [facility] Discharge planning: home Current Inpatient Medications: Current Inpatient Medications Medications (Trade) Dose Ordered Sig/Moises Route Start Time Stop Time Status Last Admin Dose Admin Heparin Sodium (Porcine) (Heparin Sq 5000 Unit/0.5ml) 5,000 unit Q8 SQ 08/07/16 22:00 09/06/16 21:59 08/11/16 14:06 5,000 UNIT Acetaminophen (Tylenol Tab) 650 mg Q4H PRN PO 08/07/16 19:45 09/06/16 19:44 Ondansetron HCl (Zofran Inj) 4 mg Q6H PRN IV 08/07/16 19:45 09/06/16 19:44 Citalopram Hydrobromide (celeXA TAB) 60 mg DAILY PO 08/08/16 09:00 09/07/16 08:59 08/11/16 08:55 60 MG Diltiazem HCl (Cardizem Cd Cap) 240 mg QAM PO 08/08/16 09:00 09/07/16 08:59 08/11/16 08:56 240 MG Fludrocortisone Acetate (Florinef Tab) 0.1 mg QAM PO 08/08/16 09:00 09/07/16 08:59 08/11/16 08:57 0.1 MG Furosemide (Lasix Tab) 20 mg QAM PO 08/08/16 09:00 09/07/16 08:59 08/11/16 08:56 20 MG Multivitamins (Multivitamin Tab) 1 tab DAILY PO 08/08/16 09:00 09/07/16 08:59 08/11/16 08:56 1 TAB Warfarin Sodium (Coumadin Tab) 7.5 mg QPM PO 08/07/16 21:00 09/06/16 20:59 08/10/16 20:52 7.5 MG Miscellaneous Information (Order Awaiting Action) 1 ea QS N/A 08/08/16 00:00 09/07/16 00:00 08/08/16 08:00 1 EA Miscellaneous Information (Order Awaiting Action) 1 ea QS N/A 08/08/16 00:00 09/07/16 00:00 08/08/16 07:59 1 EA Potassium Chloride (Klor-Con M10) 10 meq QPM PO 08/07/16 21:00 09/06/16 20:59 08/10/16 20:53 10 MEQ Ranitidine HCl (zANTac TAB) 300 mg HS PO 08/07/16 21:00 09/06/16 20:59 08/10/16 20:51 300 MG Multi-Ingredient Ointment (Eucerin Unscented Cr) 1 appln DAILY PRN EXT 08/08/16 14:15 09/07/16 14:14 08/09/16 13:01 1 APPLN Buspirone HCl (Buspar Tab) 10 mg BID PO 08/08/16 21:00 09/07/16 20:59 08/11/16 08:56 10 MG Salmeterol Xinafoate/ Fluticasone 1 puff 1 puff BID INH 08/10/16 09:00 09/09/16 08:59 08/11/16 08:55 1 PUFF Cefazolin Sodium/ Dextrose (Ancef Iv/D5 50ml) 60 ml @ 100 mls/hr Q8H IV 08/10/16 10:00 08/20/16 09:29 08/11/16 09:26 100 MLS/HR
[2016-08-11 15:50] VITALS: BP 121/80; PULSE 100; TEMP 37; O2SAT 91
[2016-08-11] MEDS: WARFARIN SOD 7.5 MG TAB PO SCH (20:47)
[2016-08-11] MEDS: POTASSIUM CHLORIDE 10 MEQ TABCR PO SCH (20:48)
[2016-08-11] MEDS: RANITIDINE HCL 150 MG TAB PO SCH (20:48)
[2016-08-11 23:43] VITALS: BP 128/81; PULSE 97; TEMP 37.2; O2SAT 90
[2016-08-12] MEDS: CEFAZOLIN IV 2,000 MG in DEXTROSE 5% 50ML 50 ML IV SCH ×3 (02:18→18:23)
[2016-08-12 06:52] LABS: HEMATOCRIT 35.3 % (42-52); MEAN CELL VOLUME 86.3 fL (80-100); MEAN CORPUSCULAR HEMOGLOBIN 29.1 pg (25-34); MEAN CORPUSCULAR HGB CONC 33.7 g/dl (32-36); MEAN PLATELET VOLUME 8.7 fL (7.4-10.4); PLATELET COUNT 200 K/uL (130-400); RED BLOOD COUNT 4.09 M/uL (4.7-6.1); WHITE BLOOD COUNT 6.37 K/uL (4.8-10.8)
[2016-08-12 07:01] LABS: INR 1.9 (0.9-1.1); PROTHROMBIN TIME (PATIENT) 21.4 SECONDS (9.0-12.0)
[2016-08-12 07:19] LABS: BUN/CREATININE RATIO 8.3 (10-20); CALCIUM 8.9 mg/dl (8.5-10.1); CREATININE 1.1 mg/dl (0.60-1.40); MAGNESIUM 2.1 mg/dl (1.8-2.4); POTASSIUM 3.5 mmol/L (3.5-5.1)
[2016-08-12 08:03] VITALS: BP 130/88; PULSE 96; TEMP 37; O2SAT 90
--- NOTE | 2016-08-12 08:35 | PROGRESS NOTE ---
DATE: 08/12/2016 The patient is improving every day from a pulmonary standpoint. He has been ambulating in the hallway even this morning and feels well. He denies cough or chest pain. States from a respiratory standpoint, he is considerably improved. He is tolerating the inhalers and antibiotics well without any diarrhea. He is not smoking. 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 PHYSICAL EXAMINATION: VITAL SIGNS: Stable and he is afebrile. He is tolerating the Advair well. Oxygen saturation 90% on room air. Blood pressure 128/81. His weight is stable at 94.2 kilograms, he was 97 kilograms on 08/07/2016. According to the nurses' notes, he had a fairly good night last night. Wears oxygen 2 liters at night. NECK: There is no neck vein distention or HJR. No thrush noted. HEART: Regular rate and rhythm. No murmurs are heard. LUNGS: Clear. ABDOMEN: Soft, nontender. EXTREMITIES: He has no cyanosis or clubbing. Echocardiogram revealed hypokinesis in the basal and inferior wall with LVEF of 55-60%, normal right ventricular structures, mild dilatation of the left atrium, and right atrium is just very mildly dilated with normal CVP pressures suggested. No significant aortic valvular disease is noted. CBC and PRP are pending. IMPRESSION: 1. Chronic obstructive lung disease. 2. Ulcerations, lower extremities. 3. Abnormal EKG. RECOMMENDATIONS: 1. At this point, because of the abnormal echo and abnormal EKG, cardiology evaluation as an outpatient may be helpful. 2. I will continue with his present inhalers and we discussed the use of the inhalers at great length. He can follow up with Dr. Gomes or Dr. Choudhary as an outpatient 2 weeks after discharge.
[2016-08-12] MEDS: MULTIVITAMIN TAB PO SCH (08:38)
[2016-08-12] MEDS: FUROSEMIDE 40 MG TAB PO SCH (08:38)
[2016-08-12] MEDS: FLUTICASONE/SALMETEROL 250/50 (ADVAIR) 14 PUFF/1 INHALER INH SCH ×2 (08:38→21:35)
[2016-08-12] MEDS: DILTIAZEM HCL 240 MG CAPCR PO SCH (08:38)
[2016-08-12] MEDS: CITALOPRAM 40 MG TAB PO SCH (08:39)
[2016-08-12] MEDS: FLUDROCORTISONE ACETATE 0.1 MG TAB PO SCH (08:39)
[2016-08-12] MEDS ORDERED: ENOXAPARIN 40 MG/0.4 ML SYR SQ SCH (09:00)
[2016-08-12] MEDS ORDERED: VANCOMYCIN TROUGH ONE (09:30)
[2016-08-12 15:15] VITALS: BP 121/75; PULSE 95; TEMP 37.1; O2SAT 93
--- NOTE | 2016-08-12 18:27 | Progress Note ---
Medicine Progress Note Date & Time of Visit: August 12, 2016 at 18:23. Subjective 71 yo M with COPD and lower extremity venous stasis ulcers with cellulitis doing well denies fevers or chills denies chest pain, shortness of breath or other symptoms at this time ambulatory tolerating PO Objective Last 8 Hrs Date Time Temp Pulse Resp B/P Pulse Ox O2 Delivery O2 Flow Rate FiO2 08/12/16 15:36 Room Air 08/12/16 15:15 37.1 95 18 121/75 93 Room Air Physical Exam: GEN: obese, alert and appropriate HEENT: NC/AT, normal sclerae CARDIO: reg rate, no m/g/r LUNGS: CTA bilaterally, no crackles, rales or wheezes, good diaphragmatic excursion ABD: soft, obese/protuberant, non-tender, non-distended, no rebound or guarding , +BS EXTREMITY: dressings are in place. R leg still warm with improved erythema. No open wound on R leg. Quarter size Stage II venous stasis ulcer on medial malleolus, draining serous fluid-granulation tissue present. NEURO: CN 2-12 grossly intact, no gross focal deficits. MUSC: strength intact throughout, no gross focal deficits SKIN: warm and dry and wounds as above. Laboratory Results: 08/12/16 05:52 08/12/16 05:52 Test 08/07/16 15:24 08/07/16 18:22 08/07/16 18:37 08/07/16 18:56 D-Dimer 320 ug/L FEU (0-500) Total Bilirubin 0.5 mg/dl (0.2-1) Direct Bilirubin 0.2 mg/dl (0-0.2) Aspartate Amino Transf (AST/SGOT) 20 U/L (15-37) Alanine Aminotransferase (ALT/SGPT) 28 U/L (12-78) Alkaline Phosphatase 81 U/L (45-117) Total Creatine Kinase 148 U/L (39-308) Creatine Kinase MB 1.7 ng/ml (0.5-3.6) Creatine Kinase MB Ratio 1.1 (0-3.0) Troponin I < 0.015 ng/ml (0-0.045) Pro-B-Type Natriuretic Peptide 3744 pg/ml (0-900) Total Protein 6.8 gm/dl (6.4-8.2) Albumin 2.9 gm/dl (3.4-5.0) Thyroid Stimulating Hormone (TSH) 0.534 uIu/ml (0.300-4.500) Bedside Lactic Acid Venous 1.03 mmol/L (0.90-1.70) Activated Partial Thromboplast Time 47.8 SECONDS (21.0-31.0) Partial Thromboplastin Ratio 1.8 Urine Color DK YELLOW Urine Appearance CLEAR (CLEAR) Urine pH 5.5 (4.5-7.5) Urine Specific [place] 1.019 (1.000-1.030) Urine Protein NEG (NEG) Urine Glucose (UA) NEG (NEG) Urine Ketones TRACE (NEG) Urine Occult Blood NEG (NEG) Urine Nitrite NEG (NEG) Urine Bilirubin NEG (NEG) Urine Urobilinogen NEG (NEG) Urine Leukocyte Esterase NEG (NEG) Test 08/08/16 06:25 08/09/16 21:28 08/12/16 05:52 Immature Granulocyte % (Auto) 0.2 % White Blood Count 10.94 K/uL (4.8-10.8) Red Blood Count 4.39 M/uL (4.7-6.1) 4.09 M/uL (4.7-6.1) Hemoglobin 12.4 g/dL (14.0-18.0) Hematocrit 37.8 % (42-52) Mean Corpuscular Volume 86.1 fL (80-100) 86.3 fL (80-100) Mean Corpuscular Hemoglobin 28.2 pg (25-34) 29.1 pg (25-34) Mean Corpuscular Hemoglobin Concent 32.8 g/dl (32-36) 33.7 g/dl (32-36) Platelet Count 145 K/uL (130-400) Mean Platelet Volume 8.9 fL (7.4-10.4) 8.7 fL (7.4-10.4) Neutrophils (%) (Auto) 82.3 % Lymphocytes (%) (Auto) 10.3 % Monocytes (%) (Auto) 5.3 % Eosinophils (%) (Auto) 1.8 % Basophils (%) (Auto) 0.1 % Neutrophils # (Auto) 9.00 K/uL (1.4-6.5) Lymphocytes # (Auto) 1.13 K/uL (1.2-3.4) Monocytes # (Auto) 0.58 K/uL (0.11-0.59) Eosinophils # (Auto) 0.20 K/uL (0-0.5) Basophils # (Auto) 0.01 K/uL (0-0.2) Immature Granulocyte # (Auto) 0.02 K/uL (0.00-0.02) Estimated Average Glucose 126 mg/dl Hemoglobin A1c 6.0 % (4.5-5.6) Vancomycin Level Trough 13.1 mcg/ml (SEE COMMENT) RDW Standard Deviation 42.0 fL (36.4-46.3) RDW Coefficient of Variation 13.1 % (11.5-14.5) Prothrombin Time 21.4 SECONDS (9.0-12.0) Prothromb Time International Ratio 1.9 (0.9-1.1) Anion Gap 8.0 mmol/L (3-11) Est Creatinine Clear Calc Drug Dose 73.9 ml/min Estimated GFR () 79.0 Estimated GFR (Non- 68.1 BUN/Creatinine Ratio 8.3 (10-20) Calcium Level 8.9 mg/dl (8.5-10.1) Magnesium Level 2.1 mg/dl (1.8-2.4) Date/Time Source Procedure Growth Status 08/07/16 18:15 Blood Blood Culture - Preliminary NO GROWTH TO DATE. Resulted 08/09/16 13:11 Pharyngeal Swab Throat Culture - Final LIGHT NORMAL JASON. Complete 08/07/16 22:25 Sputum Expectorated Sputum Gram Stain - Final Complete 08/07/16 22:25 Sputum Culture - Final Staphylococcus Aureus [place]. Influ Betalactamase Pos Complete 08/07/16 22:25 Ulcer Ankle Right Gram Stain - Final Complete 08/07/16 22:25 Wound Culture - Final Corynebacterium Species Staphylococcus Aureus Complete Last 24 Hours Test 08/12/16 05:52 White Blood Count 6.37 K/uL Red Blood Count 4.09 M/uL Hemoglobin 11.9 g/dL Hematocrit 35.3 % Mean Corpuscular Volume 86.3 fL Mean Corpuscular Hemoglobin 29.1 pg Mean Corpuscular Hemoglobin Concent 33.7 g/dl RDW Standard Deviation 42.0 fL RDW Coefficient of Variation 13.1 % Platelet Count 200 K/uL Mean Platelet Volume 8.7 fL Prothrombin Time 21.4 SECONDS Prothromb Time International Ratio 1.9 Sodium Level 143 mmol/L Potassium Level 3.5 mmol/L Chloride Level 106 mmol/L Carbon Dioxide Level 29 mmol/L Anion Gap 8.0 mmol/L Blood Urea Nitrogen 9 mg/dl Creatinine 1.10 mg/dl Est Creatinine Clear Calc Drug Dose 73.9 ml/min Estimated GFR () 79.0 Estimated GFR (Non- 68.1 BUN/Creatinine Ratio 8.3 Random Glucose 100 mg/dl Calcium Level 8.9 mg/dl Magnesium Level 2.1 mg/dl Assessment & Plan 71 yo M with COPD and lower extremity venous stasis ulcers with cellulitis ASSESSMENT: Dyspnea 2/2 COPD exacerbation-resolved Lower Extremity Cellulitis-improving Venous Stasis Ulceration Persistent atrial Fibrillation-on coumadin, therapeutic INR Diastolic CHF, chronic CKD stage 3 Hx. of Renal CA s/p nephrectomy Depression Orthostatic Hypotension PLAN: Cont with IV Ancef for now as erythema improved but still involving 50% of leg No steroids indicated for COPD Appreciate pulm eval. Per recs will stop Duonebs and cont with Combivent. Advair was added. uses Nocturnal O2, which we will continue TTE on 08/10 revealed some hypokinetic segments of LV but overall good LV function with EF 55--60% may benefit from an outpatient Cardiology evaluation when feeling better for monitoring of this in setting of chronic ESCOBAR R leg is somewhat improved improved WRT erythema and swelling on IV Ancef, cont until more improvement is seen US of bilat LE negative for DVT on 08/10 Cont Dilt Cont coumadin, daily INR DVT ppx subq heparin FULL CODE Dispo: return home once on oral abx DO Frieda Foreman Hospitalist Discharge planning: home Current Inpatient Medications: Current Inpatient Medications Medications (Trade) Dose Ordered Sig/Moises Route Start Time Stop Time Status Last Admin Dose Admin Acetaminophen (Tylenol Tab) 650 mg Q4H PRN PO 08/07/16 19:45 09/06/16 19:44 Ondansetron HCl (Zofran Inj) 4 mg Q6H PRN IV 08/07/16 19:45 09/06/16 19:44 Citalopram Hydrobromide (celeXA TAB) 60 mg DAILY PO 08/08/16 09:00 09/07/16 08:59 08/12/16 08:39 60 MG Diltiazem HCl (Cardizem Cd Cap) 240 mg QAM PO 08/08/16 09:00 09/07/16 08:59 08/12/16 08:38 240 MG Fludrocortisone Acetate (Florinef Tab) 0.1 mg QAM PO 08/08/16 09:00 09/07/16 08:59 08/12/16 08:39 0.1 MG Furosemide (Lasix Tab) 20 mg QAM PO 08/08/16 09:00 09/07/16 08:59 08/12/16 08:38 20 MG Multivitamins (Multivitamin Tab) 1 tab DAILY PO 08/08/16 09:00 09/07/16 08:59 08/12/16 08:38 1 TAB Warfarin Sodium (Coumadin Tab) 7.5 mg QPM PO 08/07/16 21:00 09/06/16 20:59 08/11/16 20:47 7.5 MG Miscellaneous Information (Order Awaiting Action) 1 ea QS N/A 08/08/16 00:00 09/07/16 00:00 08/08/16 08:00 1 EA Miscellaneous Information (Order Awaiting Action) 1 ea QS N/A 08/08/16 00:00 09/07/16 00:00 08/08/16 07:59 1 EA Potassium Chloride (Klor-Con M10) 10 meq QPM PO 08/07/16 21:00 09/06/16 20:59 08/11/16 20:48 10 MEQ Ranitidine HCl (zANTac TAB) 300 mg HS PO 08/07/16 21:00 09/06/16 20:59 08/11/16 20:48 300 MG Multi-Ingredient Ointment (Eucerin Unscented Cr) 1 appln DAILY PRN EXT 08/08/16 14:15 09/07/16 14:14 08/09/16 13:01 1 APPLN Buspirone HCl (Buspar Tab) 10 mg BID PO 08/08/16 21:00 09/07/16 20:59 08/12/16 08:39 10 MG Salmeterol Xinafoate/ Fluticasone 1 puff 1 puff BID INH 08/10/16 09:00 09/09/16 08:59 08/12/16 08:38 1 PUFF Cefazolin Sodium/ Dextrose (Ancef Iv/D5 50ml) 60 ml @ 100 mls/hr Q8H IV 08/10/16 10:00 08/20/16 09:29 08/12/16 10:21 100 MLS/HR
[2016-08-12] MEDS: RANITIDINE HCL 150 MG TAB PO SCH (21:34)
[2016-08-12] MEDS: WARFARIN SOD 7.5 MG TAB PO SCH (21:35)
[2016-08-12] MEDS: POTASSIUM CHLORIDE 10 MEQ TABCR PO SCH (21:36)
[2016-08-12 23:48] VITALS: BP 116/69; PULSE 101; TEMP 37.2; O2SAT 92
[2016-08-13] VITALS: O2SAT 92
[2016-08-13] MEDS: CEFAZOLIN IV 2,000 MG in DEXTROSE 5% 50ML 50 ML IV SCH ×2 (02:09→10:17)
[2016-08-13 05:55] LABS: INR 1.7 (0.9-1.1); PROTHROMBIN TIME (PATIENT) 18.1 SECONDS (9.0-12.0)
[2016-08-13 07:28] VITALS: BP 121/83; PULSE 99; TEMP 36.8; O2SAT 94
[2016-08-13] MEDS: DILTIAZEM HCL 240 MG CAPCR PO SCH (08:37)
[2016-08-13] MEDS: FLUDROCORTISONE ACETATE 0.1 MG TAB PO SCH (08:37)
[2016-08-13] MEDS: FUROSEMIDE 40 MG TAB PO SCH (08:37)
[2016-08-13] MEDS: MULTIVITAMIN TAB PO SCH (08:38)
[2016-08-13] MEDS: CITALOPRAM 40 MG TAB PO SCH (08:38)
[2016-08-13] MEDS: FLUTICASONE/SALMETEROL 250/50 (ADVAIR) 14 PUFF/1 INHALER INH SCH ×2 (08:38→20:27)
[2016-08-13 15:34] VITALS: BP 119/82; PULSE 91; TEMP 37.1; O2SAT 92
[2016-08-13] MEDS: CEPHALEXIN MONOHYDRATE 500 MG CAP PO SCH ×2 (16:54→20:28)
[2016-08-13] MEDS: WARFARIN SOD 7.5 MG TAB PO SCH (20:27)
[2016-08-13] MEDS: POTASSIUM CHLORIDE 10 MEQ TABCR PO SCH (20:28)
[2016-08-13] MEDS: RANITIDINE HCL 150 MG TAB PO SCH (20:31)
--- NOTE | 2016-08-13 22:23 | Progress Note ---
Medicine Progress Note Date & Time of Visit: August 13, 2016 at 13:58. Subjective 71 yo M with COPD and lower extremity venous stasis ulcers with cellulitis doing well denies fevers or chills denies chest pain, shortness of breath or other symptoms at this time ambulatory tolerating PO Objective Last 8 Hrs Date Time Temp Pulse Resp B/P Pulse Ox O2 Delivery O2 Flow Rate FiO2 08/13/16 08:00 Room Air 08/13/16 07:28 36.8 99 18 121/83 94 Room Air Physical Exam: GEN: obese, alert and appropriate HEENT: NC/AT, normal sclerae CARDIO: reg rate, no m/g/r LUNGS: CTA bilaterally, no crackles, rales or wheezes, good diaphragmatic excursion ABD: soft, obese/protuberant, non-tender, non-distended, no rebound or guarding , +BS EXTREMITY: dressings are in place. R leg still warm with improved erythema. No open wound on R leg. Quarter size Stage II venous stasis ulcer on medial malleolus, non-draining. NEURO: CN 2-12 grossly intact, no gross focal deficits. MUSC: strength intact throughout, no gross focal deficits, ambulatory SKIN: warm and dry and wounds as above. Laboratory Results: Test 08/13/16 05:38 Prothrombin Time 18.1 SECONDS (9.0-12.0) Prothromb Time International Ratio 1.7 (0.9-1.1) Last 24 Hours Test 08/13/16 05:38 Prothrombin Time 18.1 SECONDS Prothromb Time International Ratio 1.7 Assessment & Plan 71 yo M with COPD and lower extremity venous stasis ulcers with cellulitis ASSESSMENT: Dyspnea 2/2 COPD exacerbation-resolved Lower Extremity Cellulitis-improving Venous Stasis Ulceration Persistent atrial Fibrillation-on coumadin, therapeutic INR Diastolic CHF, chronic CKD stage 3 Hx. of Renal CA s/p nephrectomy Depression Orthostatic Hypotension PLAN: -improvement of erythema-->switch IV Ancef to PO Keflex No steroids indicated for COPD Appreciate pulm eval. Per recs will stop Duonebs and cont with Combivent. Advair was added. uses Nocturnal O2, which we will continue TTE on 08/10 revealed some hypokinetic segments of LV but overall good LV function with EF 55--60% may benefit from an outpatient Cardiology evaluation when feeling better for monitoring of this in setting of chronic ESCOBAR R leg is somewhat improved improved WRT erythema and swelling on IV Ancef, cont until more improvement is seen US of bilat LE negative for DVT on 08/10 Cont Dilt Cont coumadin, daily INR DVT ppx subq heparin FULL CODE Dispo: [facility] Discharge planning: home Current Inpatient Medications: Current Inpatient Medications Medications (Trade) Dose Ordered Sig/Moises Route Start Time Stop Time Status Last Admin Dose Admin Acetaminophen (Tylenol Tab) 650 mg Q4H PRN PO 08/07/16 19:45 09/06/16 19:44 Ondansetron HCl (Zofran Inj) 4 mg Q6H PRN IV 08/07/16 19:45 09/06/16 19:44 Citalopram Hydrobromide (celeXA TAB) 60 mg DAILY PO 08/08/16 09:00 09/07/16 08:59 08/13/16 08:38 60 MG Diltiazem HCl (Cardizem Cd Cap) 240 mg QAM PO 08/08/16 09:00 09/07/16 08:59 08/13/16 08:37 240 MG Fludrocortisone Acetate (Florinef Tab) 0.1 mg QAM PO 08/08/16 09:00 09/07/16 08:59 08/13/16 08:37 0.1 MG Furosemide (Lasix Tab) 20 mg QAM PO 08/08/16 09:00 09/07/16 08:59 08/13/16 08:37 20 MG Multivitamins (Multivitamin Tab) 1 tab DAILY PO 08/08/16 09:00 09/07/16 08:59 08/13/16 08:38 1 TAB Warfarin Sodium (Coumadin Tab) 7.5 mg QPM PO 08/07/16 21:00 09/06/16 20:59 08/12/16 21:35 7.5 MG Miscellaneous Information (Order Awaiting Action) 1 ea QS N/A 08/08/16 00:00 09/07/16 00:00 08/08/16 08:00 1 EA Miscellaneous Information (Order Awaiting Action) 1 ea QS N/A 08/08/16 00:00 09/07/16 00:00 08/08/16 07:59 1 EA Potassium Chloride (Klor-Con M10) 10 meq QPM PO 08/07/16 21:00 09/06/16 20:59 08/12/16 21:36 10 MEQ Ranitidine HCl (zANTac TAB) 300 mg HS PO 08/07/16 21:00 09/06/16 20:59 08/12/16 21:34 300 MG Multi-Ingredient Ointment (Eucerin Unscented Cr) 1 appln DAILY PRN EXT 08/08/16 14:15 09/07/16 14:14 08/09/16 13:01 1 APPLN Buspirone HCl (Buspar Tab) 10 mg BID PO 08/08/16 21:00 09/07/16 20:59 08/13/16 08:38 10 MG Salmeterol Xinafoate/ Fluticasone 1 puff 1 puff BID INH 08/10/16 09:00 09/09/16 08:59 08/13/16 08:38 1 PUFF Cefazolin Sodium/ Dextrose (Ancef Iv/D5 50ml) 60 ml @ 100 mls/hr Q8H IV 08/10/16 10:00 08/20/16 09:29 08/13/16 10:17 100 MLS/HR
[2016-08-14] VITALS: O2SAT 92
[2016-08-14 00:07] VITALS: BP 127/77; PULSE 109; TEMP 37; O2SAT 94
[2016-08-14 06:34] LABS: INR 1.7 (0.9-1.1); PROTHROMBIN TIME (PATIENT) 18.9 SECONDS (9.0-12.0)
[2016-08-14 07:39] VITALS: BP 103/66; PULSE 96; TEMP 36.8; O2SAT 93
[2016-08-14 08:00] VITALS: O2SAT 93
[2016-08-14] MEDS: FLUTICASONE/SALMETEROL 250/50 (ADVAIR) 14 PUFF/1 INHALER INH SCH (08:43)
[2016-08-14] MEDS: FLUDROCORTISONE ACETATE 0.1 MG TAB PO SCH (08:44)
[2016-08-14] MEDS: CITALOPRAM 40 MG TAB PO SCH (08:45)
[2016-08-14] MEDS: DILTIAZEM HCL 240 MG CAPCR PO SCH (08:47)
[2016-08-14] MEDS: MULTIVITAMIN TAB PO SCH (08:47)
[2016-08-14] MEDS: CEPHALEXIN MONOHYDRATE 500 MG CAP PO SCH ×2 (08:48→12:50)
[2016-08-14] MEDS: FUROSEMIDE 40 MG TAB PO SCH (08:50)
[2016-08-14 10:30] VITALS: PULSE 124; O2SAT 95
--- NOTE | 2016-08-14 11:26 | PULMONARY PROGRESS NOTE ---
DATE: 08/14/2016 TIME: 11:00 a.m. SUBJECTIVE: The patient is feeling much better. He states his breathing is much improved since admission. Also, his cough is less and the mucus is less. He feels that his legs are improved as well. The patient states he usually follows with Julita Garcia at [facility] for pulmonary care. He states he takes Breo Ellipta 1 puff daily and Combivent, typically 3 times per day. He states he is taking is own Combivent in the hospital here. OBJECTIVE: GENERAL: The patient appeared comfortable. He was cooperative, alert and oriented. VITAL SIGNS: Temperature was 36.8. Blood pressure is 103/66. Respiratory rate is 18 breaths per minute and not labored. ENT: Unremarkable. The patient does have facial hair. NECK: Palpation of the neck reveals no lymph nodes. HEART: Heart rate was 96 per minute. The rhythm is irregular. LUNGS: Lung ventura were clear. The breath sounds were mildly diminished. Oxygen saturation on room air is 93%. ABDOMEN: Soft. It was nontender. The lower extremities are wrapped. LABORATORY DATA: INR today is 1.7. Sputum culture had been positive for Staphylococcus aureus and Haemophilus influenza. IMPRESSIONS: Chronic obstructive pulmonary disease with exacerbation. Comments and RECOMMENDATIONS: The patient seems to be doing well. He feels that his breathing is back to baseline. In here, he is taking Advair, but at home he takes Breo Ellipta, which would be an equivalent. He is currently on cephalexin. I believe at home it is reasonable for him to continue with Breo Ellipta and the Combivent Respimat as he does at baseline. He should follow up with Julita Garcia from [facility] pulmonary. [facility]
[2016-08-14] MEDS ORDERED: KFL500 PO (12:29)
--- NOTE | 2016-08-14 12:42 | Discharge Instructions ---
Discharge Instructions Date of Service August 14, 2016. Admission Reason for Admission: Cellulitis, Leukocytosis, Sob Discharge Discharge Diagnosis / Problem: COPD exacerbation 2/2 H. influenza, RLE cellulitis, Venous stasis ulcer Discharge Goals Goal(s): Prevent Disease Progression Activity Recommendations Activity Limitations: per Instructions/Follow-up section . Instructions / Follow-Up Instructions / Follow-Up Please tale all medications as prescribed above. Please finish full course of antibiotics and follow-up with primary care physician (PCP) regarding progress and need for further antibiotics. You have a follow-up appointment scheduled for Monday 08/21 at 11:[address] Shrestha. Ensure follow-up with the Wound Care clinic in your area for regular care of your venous stasis ulcer. Please follow-up within two weeks with your lung doctor after this hospitalization. Please follow-up with Coumadin Clinic sometime this week for monitoring of your INR while on an antibiotic and after this hospitalization. It was a pleasure taking care of you! Call if you have any questions or problems. You can reach a [facility] hospitalist on duty at [facility] 24 hours a day by calling [phone]. Take care of yourself. Ilana Dacosta DO [facility] Hospitalist Current Hospital Diet Patient's current hospital diet: AHA Diet (Heart Healthy), Low Sodium Diet (2gm Na) Discharge Diet Recommended Diet: AHA Diet (Heart Healthy), Low Sodium Diet (2gm Na) Procedures Procedures Performed: TTE: 08/10 Pending Studies Studies pending at discharge: no Laboratory Results Hemoglobin A1c Test 08/08/16 06:25 Range/Units Estimated Average Glucose 126 mg/dl Hemoglobin A1c 6.0 H 4.5-5.6 % Medical Emergencies . Who to Call and When: Medical Emergencies: If at any time you feel your situation is an emergency, please call 911 immediately. . Non-Emergent Contact Non-Emergency issues call your: Primary Care Provider . . "Provider Documentation" section prepared by Ilana Dacosta. . VTE Core Measure Inpt VTE Proph given/why not?: Enoxaparin (Lovenox)SQ
[2016-08-14 12:59] VITALS: BP 103/66; PULSE 96; TEMP 36.8; O2SAT 93
--- NOTE | 2016-08-16 09:33 | Discharge Summary ---
Discharge Summary Date of Service August 16, 2016. Discharge Summary Admission Date: August 07, 2016 at 19:46 Discharge Date: August 14, 2016 Discharge Disposition: Home Principal Diagnosis: Dyspnea 2/2 COPD exacerbation-resolved Lower Extremity Cellulitis-improving Venous Stasis Ulceration Persistent atrial Fibrillation-on coumadin, therapeutic INR Diastolic CHF, chronic CKD stage 3 Hx. of Renal CA s/p nephrectomy Depression Orthostatic Hypotension Procedures: TTE- 08/10 Vaccinations: None. Consultations: Cardiology, Pulmonary, ID Pending Studies/Follow-Up: see instructions below Medication Reconciliation New Medications: Cephalexin Monohydrate (Cephalexin) 500 Mg Cap 500 MG PO QID for 4 Days, #16 CAP 0 Refills Continued Medications: Albuterol Hfa (Ventolin Hfa) 200 Puffs/98010 Mcg Aers 2 PUFFS INH Q6H PRN for SOB/Wheezing Albuterol Sulf (Proventil 0.083% 2.5MG/3ML) 2.5 Mg/3 Ml Nebu 2.5 MG INH QID PRN for SOB/Wheezing Buspirone Hcl (Buspirone Hcl) 10 Mg Tab 10 MG PO BID Citalopram Hydrobromide (Celexa) 40 Mg Tab 1.5 TABS PO DAILY Diltiazem Hcl Coated Beads (Diltiazem Cd) 240 Mg Cap 1 TAB PO QAM Fludrocortisone Acetate (Florinef) 0.1 Mg Tab 0.1 MG PO QAM Fluticasone Furoate-Vilanterol (Breo Ellipta) 1 Inh Inh 1 PUFF PO DAILY Furosemide (Lasix) 40 Mg Tab 20 MG PO QAM Ipratropium [place] (Nasal) (Ipratropium [place]) 0.03 % Spr 2 SPRAY MAKENNA QID PRN for ALLERGIES Ipratropium-Albuterol (Combivent Respimat) 1 Aer Aer 1 PUFFS INH QID PRN for SOB/Wheezing Multivitamin (Multivitamin) Tab 1 TAB PO DAILY Oxygen (Oxygen) Gas 2 LITERS NA HS Potassium Chloride (Potassium Chloride Er) 10 Meq Tab 1 TAB PO QPM Prednisone (Prednisone) 20 Mg Tab 20 MG PO UD PRN for COLD SYMPTOMS Ranitidine (Zantac) 300 Mg Tab 300 MG PO HS Warfarin Sod (Coumadin) 7.5 Mg Tab 7.5 MG PO QPM Admission Information HPI (per Admitting provider): Patient seen and examined. 71 year old male with PMHX of COPD with nocturnal hypoxia, Afib on coumadin, Diastolic CHF, Depression, HLD, CKD stage 3, orthostatic hypotension and h/o renal CA presents to the ED complaining of SOB x 3 days. Patient reports he started to feel SOB when he was moving furniture in his home over the weekend. Since then feels more SOB. He reports associated increased cough with white sputum production. He states he took his rescue pack of prednisone and augmentin and finished that today. He states he feels "fuzzy" and has no energy so a friend brought him to the ED for further evaluation. He denies fevers, chills, chest pain, palpitations, nausea, vomiting, diarrhea, dysuria, calf pain and edema. Patient also has BL medial malleolus ulcers. He states he has had them for many months but that they are getting worse. In the ED VS are stable, WBC count is 20K, CXR is negative, d dimer is negative, he is not hypoxic. He received IVFs, Daptomycin and imipenem for possible cellulitis. He will be admitted for further workup and treatment. Physical Exam (per Admitting): General Appearance: + pertinent finding (Pleasant WD/WN 71 year old male lying in bed in NAD ) Head: normocephalic, atraumatic Eyes: PERRL, EOMI, sclerae normal ENT: hearing grossly normal, pharynx normal Neck: supple, no JVD Respiratory/Chest: chest non-tender, lungs clear (diminished), normal breath sounds, no respiratory distress, no accessory muscle use Cardiovascular: regular rate, rhythm, no edema, no gallop, no JVD, no murmur , normal peripheral pulses Abdomen/GI: normal bowel sounds, non tender, soft Back: normal inspection, no muscle spasm Extremities/Musculoskelatal: no calf tenderness, normal capillary refill, no pedal edema, + pertinent finding (BL medial malleolar ulcers, with scant drainage, mild surrounding erythema ) Neurologic/Psych: no motor/sensory deficits, alert, oriented x 3 Skin: + pertinent finding (stasis dermatitis ) Lymphatic: no adenopathy Hospital Course 71 yo M with COPD and lower extremity venous stasis ulcers with cellulitis ASSESSMENT: Dyspnea 2/2 COPD exacerbation-resolved Lower Extremity Cellulitis-improving Venous Stasis Ulceration Persistent atrial Fibrillation-on coumadin, therapeutic INR Diastolic CHF, chronic CKD stage 3 Hx. of Renal CA s/p nephrectomy Depression Orthostatic Hypotension PLAN: -improvement of erythema-->switch IV Ancef to PO Keflex No steroids indicated for COPD Appreciate pulm eval. Per recs will stop Duonebs and cont with Combivent. Advair was added, but pt ok to stay on Breo ellipta at home uses Nocturnal O2, which we will continue TTE on 08/10 revealed some hypokinetic segments of LV but overall good LV function with EF 55--60% may benefit from an outpatient Cardiology evaluation when feeling better for monitoring of this in setting of chronic ESCOBAR R leg is somewhat improved improved WRT erythema and swelling on IV Ancef, cont until more improvement is seen US of bilat LE negative for DVT on 08/10 Cont Dilt Cont coumadin, daily INR On day of discharge the patient was afebrile and hemodynamically stable. He was ambulating without difficulty and tolerating PO for several days. His breathing was at baseline on room air and he was reportedly feeling well and ready to go home. His cellulitis had significantly improved on exam with almost full resolution of the superficial spreading erythema on his R leg. His stasis ulcer on the R was still present and open with granulation tissue present and without drainage. Otherwise lungs were clear to auscultation and physical exam was unremarkable aside from from significant abdominal obesity. The patient was sent home in stable condition on PO Keflex to continue and follow-up scheduled with PCP. Total time spent on discharge = 60 minutes This includes examination of the patient, discharge planning, medication reconciliation, and communication with other providers. Discharge Instructions Discharge Instructions Date of Service August 14, 2016. Admission Reason for Admission: Cellulitis, Leukocytosis, Sob Discharge Discharge Diagnosis / Problem: COPD exacerbation 2/2 H. influenza, RLE cellulitis, Venous stasis ulcer Discharge Goals Goal(s): Prevent Disease Progression Activity Recommendations Activity Limitations: per Instructions/Follow-up section . Instructions / Follow-Up Instructions / Follow-Up Please tale all medications as prescribed above. Please finish full course of antibiotics and follow-up with primary care physician (PCP) regarding progress and need for further antibiotics. You have a follow-up appointment scheduled for Monday 08/21 at 11:[address] Shrestha. Ensure follow-up with the Wound Care clinic in your area for regular care of your venous stasis ulcer. Please follow-up within two weeks with your lung doctor after this hospitalization. Please follow-up with Coumadin Clinic sometime this week for monitoring of your INR while on an antibiotic and after this hospitalization. It was a pleasure taking care of you! Call if you have any questions or problems. You can reach a [facility] Hospitalist on duty at [facility] 24 hours a day by calling [phone]. Take care of yourself. Ilana Dacosta, DO [facility] Additional Copies To Jamarcus Shrestha M.D.
== END 2016-08-14 13:20 | disposition home health service (06) | DRG 191 ==
LOC: ENRESERVDT → ENRESERVTM → C.EDB 14:06 → C.2T 19:46 → C.MS2W 08-09 12:00
PROVIDERS: ADMIT Internal Medicine; ATTEND Hospitalist
DX: J44.1 Chronic obstructive pulmonary disease with (acute) exacerbation (principal); I50.32 Chronic diastolic (congestive) heart failure; L03.116 Cellulitis of left lower limb; L03.115 Cellulitis of right lower limb; N18.3 Chronic kidney disease, stage 3 (moderate); I83.003 Varicose veins of unspecified lower extremity with ulcer of ankle; I48.2 Chronic atrial fibrillation; F32.9 Major depressive disorder, single episode, unspecified; I95.1 Orthostatic hypotension; E66.9 Obesity, unspecified; R94.31 Abnormal electrocardiogram [ECG] [EKG]; R06.09 Other forms of dyspnea; Z68.29 Body mass index [BMI] 29.0-29.9, adult; I44.4 Left anterior fascicular block; N40.0 Benign prostatic hyperplasia without lower urinary tract symptoms; E87.6 Hypokalemia; B95.62 Methicillin resistant Staphylococcus aureus infection as the cause of diseases classified elsewhere; I45.10 Unspecified right bundle-branch block; K21.9 Gastro-esophageal reflux disease without esophagitis; I25.10 Atherosclerotic heart disease of native coronary artery without angina pectoris; Z96.649 Presence of unspecified artificial hip joint; Z87.891 Personal history of nicotine dependence; Z85.528 Personal history of other malignant neoplasm of kidney; Z90.5 Acquired absence of kidney; Z79.899 Other long term (current) drug therapy; Z79.51 Long term (current) use of inhaled steroids; Z99.81 Dependence on supplemental oxygen; Z79.01 Long term (current) use of anticoagulants; Z79.52 Long term (current) use of systemic steroids